=== PATIENT | male | born 1955 | race Caucasian/White ===

== ENCOUNTER 2019-02-27 17:20 | Inpatient (IN) | payer MEDICARE, BC ==
[~2019-02-27] VITALS: Ht 177.8 cm; Wt 162.4 kg
[~2019-02-27 17:20] MED LIST: Dyazide 37.5-21 EACH PO; ESCI10 PO; LISI20; Micro-K10 MEQ PO; Ventolin/Prove6.7 GM INH
[2019-02-27 17:55] LABS: BASOPHILS ABSOLUTE AUTO 0.04 K/mm3 (0.00-0.23); BASOPHILS PERCENT AUTO 0 % (0-2); EOSINOPHILS ABSOLUTE AUTO 0.53 K/mm3 (0.00-0.68); EOSINOPHILS PERCENT AUTO 6 % (0-6); Hematocrit 52.5 % (37.0-53.0); Hemoglobin 16.4 g/dL (13.5-17.5); IMMATURE GRAN ABSOLUTE AUTO 0.05 K/mm3 (0.00-0.10); IMMATURE GRAN PERCENT AUTO 1 % (0-1); LYMPHOCYTES ABSOLUTE AUTO 1.62 K/mm3 (0.84-5.20); LYMPHOCYTES PERCENT AUTO 17 % (21-46); MONOCYTES ABSOLUTE AUTO 0.83 K/mm3 (0.16-1.47); MONOCYTES PERCENT AUTO 9 % (4-13); Mean Corpuscular HGB 29.1 pg (26.0-34.0); Mean Corpuscular HGB Conc 31.2 g/dL (31.5-36.5); Mean Corpuscular Volume 93 fL (80-100); Mean Platelet Volume 10.2 fL (9.1-12.4); NEUTROPHILS ABSOLUTE AUTO 6.45 K/mm3 (1.96-9.15); NEUTROPHILS PERCENT AUTO 68 % (41-73); Platelet Count 233 K/mm3 (150-400); RDW Coefficient Variation 15.9 % (11.7-14.2); RDW Standard Deviation 54.4 fL (35.1-46.3); Red Blood Cell Count 5.64 M/mm3 (4.30-5.90); White Blood Cell Count 9.52 K/mm3 (4.00-11.30)
[2019-02-27] MEDS ORDERED: ESCITALOPRAM OX10 MG PO (18:14)
[2019-02-27] MEDS ORDERED: Bumetanide2 MG PO (18:14)
[2019-02-27 18:21] LABS: Alanine Aminotransfer (ALT/SGP 34 U/L (12-78); Albumin, Blood 3.5 g/dL (3.4-5.0); Albumin/Globulin Ratio 0.8 (0.8-1.8); Alk Phos 124 U/L (50-136); Anion Gap 3 mmol/L (6-16); Aspartate Aminotrans (AST/SGOT 34 U/L (12-37); Bilirubin, Total 0.5 mg/dL (0.1-1.0); Blood Urea Nitrogen 15 mg/dL (8-24); Bun/Creatinine Ratio 24.7 (12.0-20.0); CO2, Blood 36 mmol/L (21-32); Calcium, Blood 8.9 mg/dL (8.5-10.1); Chloride, Blood 97 mmol/L (98-108); Creatinine, Blood 0.61 mg/dL (0.60-1.20); Globulin, Blood 4.6 g/dL (2.2-4.0); Glomerular Filtration Rate >60 (60-); Glucose, Blood 121 mg/dL (70-99); Potassium, Blood 4.5 mmol/L (3.5-5.5); Sodium, Blood 136 mmol/L (136-145); Total Protein, Blood 8.1 g/dL (6.4-8.2); Troponin I <0.015 ng/mL (0.000-0.040)
[2019-02-27 20:03] LABS: Influenza A Negative (NEGATIVE); Influenza B Negative (NEGATIVE)
[2019-02-27] MEDS ORDERED: JARDIANCE25 MG PO (21:51)
[2019-02-27] MEDS ORDERED: METF500 PO (21:52)
--- NOTE | 2019-02-28 05:36 | NUR ---
SHIFT SUMMARY PT NEW ER ADMIT THIS EVENING. PT ALERT AND ORIENTED. PLEASANT AND MOSTLY COOPERATIVE. PT REPORTED THAT HE CANNOT SLEEP LYING DOWN SO A RECLINER WAS SET UP AND PT REMAINED IN THAT THROUGHOUT THE NIGHT. PT SLEPT WELL IN THE RECLINER FOR MOST OF THE NIGHT. DIAPHORETIC THIS AM WHICH PT STATES IN NORMAL FOR HIM. PT ON 4 L OF O2 WITH HIS BASELINE BEING ROOM AIR. PT'S O2 SATS REMAINED IN THE LOW 90'S ON THE 4 L. LUNG SOUNDS VERY WHEEZY THROUGHOUT. HARSH NON PRODUCTIVE COUGH NOTED. HEADACHE REPORTED THIS AM. TYLENOL PROVIDED. PT SLEEPING AGAIN WHEN REEVALUATED. VITAL SIGNS STABLE. NO ACUTE CHANGES THIS SHIFT. WILL CONTINUE TO MONITOR.
--- NOTE | 2019-02-28 17:26 | NUR ---
SHIFT SUMMARY- PT A/O, COOPERATIVE AND PLESANT. PT INDEPENDANT IN THE ROOM. PT RECIEVED TWO BREATHING TREATMENTS FROM RT. PT COUGHING FREQUENTLY THROUGHOUT THE SHIFT. PT HAD VISITORS AT THE BEDSIDE FOR MUCH OF THIS SHIFT.
[2019-03-01 04:38] LABS: BASOPHILS ABSOLUTE AUTO 0.02 K/mm3 (0.00-0.23); BASOPHILS PERCENT AUTO 0 % (0-2); EOSINOPHILS ABSOLUTE AUTO 0.01 K/mm3 (0.00-0.68); EOSINOPHILS PERCENT AUTO 0 % (0-6); Hematocrit 51.8 % (37.0-53.0); IMMATURE GRAN ABSOLUTE AUTO 0.11 K/mm3 (0.00-0.10); IMMATURE GRAN PERCENT AUTO 1 % (0-1); LYMPHOCYTES ABSOLUTE AUTO 0.65 K/mm3 (0.84-5.20); LYMPHOCYTES PERCENT AUTO 3 % (21-46); MONOCYTES ABSOLUTE AUTO 0.45 K/mm3 (0.16-1.47); MONOCYTES PERCENT AUTO 2 % (4-13); Mean Corpuscular HGB 28.8 pg (26.0-34.0); Mean Corpuscular HGB Conc 30.9 g/dL (31.5-36.5); Mean Corpuscular Volume 93 fL (80-100); Mean Platelet Volume 10.3 fL (9.1-12.4); NEUTROPHILS ABSOLUTE AUTO 19.68 K/mm3 (1.96-9.15); NEUTROPHILS PERCENT AUTO 94 % (41-73); Platelet Count 207 K/mm3 (150-400); RDW Standard Deviation 55.5 fL (35.1-46.3); Red Blood Cell Count 5.56 M/mm3 (4.30-5.90); White Blood Cell Count 20.92 K/mm3 (4.00-11.30)
--- NOTE | 2019-03-01 04:53 | NUR ---
SHIFT SUMMARY PT REPORTS TO FEELING "BETTER" INTERMITTENTLY. LUNG SOUNDS REMAIN COARSE AND WHEEZY, SLIGHTLY IMPROVED FROM PREVIOUS NIGHT. PT CONTINUED TO HAVE HARSH, PAINFUL, NON PRODUCTIVE COUGH. NEW ORDER THIS EVENING FOR GUAFENESIN/CODEINE COUGH SYRUP 5 ML Q 6 HRS NEEDED. MEDICATED WITH THIS X 1 THIS EVENING, PT SLEPT WELL AFTER WITH MINIMAL COUGHING. PT DIAPHORETIC AGAIN THIS AM. BOTH PT AND CONFIRMED THAT THIS IS BASELINE FOR PT. BLOOD PRESSURE DIASTOLIC ON THE LOW END THIS EVENING BUT IMPROVED THIS AM. VITAL SIGNS STABLE THROUGHOUT THE NIGHT. PT REPORTED THAT HE CANNOT SLEEP IN THE BED THEREFORE REMAINED IN A RECLINER THIS EVENING. REMAINED AT BEDSIDE. WILL CONTINUE TO MONITOR.
[2019-03-01 05:01] LABS: Anion Gap 5 mmol/L (6-16); Blood Urea Nitrogen 38 mg/dL (8-24); CO2, Blood 35 mmol/L (21-32); Chloride, Blood 94 mmol/L (98-108); Creatinine, Blood 0.79 mg/dL (0.60-1.20); Glomerular Filtration Rate >60 (60-); Glucose, Blood 354 mg/dL (70-99); Potassium, Blood 4.3 mmol/L (3.5-5.5); Sodium, Blood 134 mmol/L (136-145)
--- NOTE | 2019-03-01 17:08 | NUR ---
PT BG WAS 401, SPOKE WITH DR. HENSON, HE DECREASED THE DOSAGE OF THE SOLU-MEDROL FROM 60MG Q6 TO 40MG Q6.
--- NOTE | 2019-03-01 17:10 | NUR ---
PT A/O, COOPERATIVE AND PLESANT. PT CONTINUES INTERMITENT COUGHING THROUGHOUT THIS SHIFT. PT TITRATED TO 3L O2, BUT SATS DROPPED TO 89% SO INCREASED O2 BACK UP TO 4L. PT INDEPENDANT IN ROOM, PT TOOK A SHOWER THIS AFTERNOON. PT BG LEVELS INCREASED THIS SHIFT AND DR. HENSON ORDERED INSULIN. PT BG LEVEL WAS [address] CARPENTER NOTIFIED CHANGED DOSE OF SOLUMEDROL
--- NOTE | 2019-03-02 05:43 | NUR ---
SHIFT SUMMARY NO ACUTE CHANGES THIS SHIFT. LUNG SOUNDS UNCHANGED. COARSE THROUGHOUT WITH SOME WHEEZING. PT HAS HARSH NONPRODUCTIVE COUGH. PT DOES REPORT SLIGHT IMPROVEMENT IN BREATHING AND HOW HE FEELS. BREATHING TX'S PER RT. MEDICATED X 1 WITH 5 ML GUAFENESIN/CODEINE COUGH SYRUP. PT SLEPT IN RECLINER. AT BEDSIDE THROUGHOUT THE NIGHT. VITAL SIGNS STABLE. WILL CONTINUE TO MONITOR.
--- NOTE | 2019-03-02 09:51 | NUR ---
Echocardiogram completed.
--- NOTE | 2019-03-02 14:56 | NUR ---
ALERT. ORIENTED. HARSH SOUNDING COUGH. PLEASANT. COOPERATIVE. ON OXYGEN NOW W/BASELINE NO OXYGEN. IV PATENT. AWARE BLOOD SUGARS MAY BE HIGH DUE TO IV STEROIDS. INDEPENDENT IN ROOM. STEADY GAIT. OXYGEN TUBING W/EXTENTION SO HE IS ABLE TO USE BATHROOM. PULMONARY CONSULT CALLED. GISELLE.
[2019-03-03 04:42] LABS: BASOPHILS ABSOLUTE AUTO 0.02 K/mm3 (0.00-0.23); BASOPHILS PERCENT AUTO 0 % (0-2); EOSINOPHILS ABSOLUTE AUTO 0.02 K/mm3 (0.00-0.68); EOSINOPHILS PERCENT AUTO 0 % (0-6); Hematocrit 51.4 % (37.0-53.0); Hemoglobin 15.9 g/dL (13.5-17.5); IMMATURE GRAN ABSOLUTE AUTO 0.09 K/mm3 (0.00-0.10); IMMATURE GRAN PERCENT AUTO 1 % (0-1); LYMPHOCYTES ABSOLUTE AUTO 0.75 K/mm3 (0.84-5.20); LYMPHOCYTES PERCENT AUTO 5 % (21-46); MONOCYTES PERCENT AUTO 5 % (4-13); Mean Corpuscular HGB 28.4 pg (26.0-34.0); Mean Corpuscular HGB Conc 30.9 g/dL (31.5-36.5); Mean Corpuscular Volume 92 fL (80-100); Mean Platelet Volume 10.5 fL (9.1-12.4); NEUTROPHILS ABSOLUTE AUTO 14.07 K/mm3 (1.96-9.15); NEUTROPHILS PERCENT AUTO 90 % (41-73); Platelet Count 230 K/mm3 (150-400); RDW Coefficient Variation 16.1 % (11.7-14.2); RDW Standard Deviation 54.7 fL (35.1-46.3); White Blood Cell Count 15.65 K/mm3 (4.00-11.30)
[2019-03-03 05:02] LABS: Anion Gap 6 mmol/L (6-16); Blood Urea Nitrogen 28 mg/dL (8-24); Bun/Creatinine Ratio 43.5 (12.0-20.0); CO2, Blood 35 mmol/L (21-32); Calcium, Blood 8.7 mg/dL (8.5-10.1); Chloride, Blood 91 mmol/L (98-108); Creatinine, Blood 0.64 mg/dL (0.60-1.20); Glomerular Filtration Rate >60 (60-); Glucose, Blood 275 mg/dL (70-99); Potassium, Blood 4.3 mmol/L (3.5-5.5); Sodium, Blood 132 mmol/L (136-145)
--- NOTE | 2019-03-03 05:15 | NUR ---
SHIFT SUMMARY PATIENT STAYED UP IN RECLINER CHAIR AND WAS AWAKE MOST OF THE NIGHT. IV REMAINS PATENT, WAS FLUSHED AND DRESSING CHANGED. PATIENT EXPECTED TO HAVE A REPEAK CHEST X-RAY AND HOME O2 EVAL. BED IN LOWEST POSITION WITH WHEELS LOCKED. CALL LIGHT AND BEDSIDE TABLE WITHIN REACH. REPORT GIVEN TO ONCOMING RN.
[2019-03-03] MEDS ORDERED: AIRDUO RESPICL1 EAC2 INH (11:16)
[2019-03-03] MEDS ORDERED: GUAI600T33 PO (11:17)
[2019-03-03] MEDS ORDERED: ALBU3IS INH (11:23)
[2019-03-03] MEDS ORDERED: LISI20 PO (11:24)
[2019-03-03] MEDS ORDERED: PRED20 PO (11:24)
--- NOTE | 2019-03-03 15:11 | NUR ---
PT AOX4 AND COOPERATIVE OF CARE. PT STILL WHEEZING THROUGHOUT AND NEEDS 4 L OF O2. PT DISCHARGED AT 1500 WITH TO TRANSPORT. PT'S HOME O2 WAS DELIVERED PRIOR TO DISCHARGE. PT HAD ALL PAPERS REVEIWED AND EDUCATIONAL MATERIAL SENT WITH HIM. NO DISTRESS NOTED. PT ESCORTED VIA WHEELCHAIR BY AID. MEDICTIONS FAXED TO [facility]. APPOINTMENT SCHEDULED WITH PULMONARY FOR 03/09/19 @ 0530. THEY WILL CALL PT IF AND EARLIER APPOINTMENT CAN BE ARRANGED.
== END 2019-03-03 15:00 | disposition home or self-care (01) | DRG 189 ==
LOC: ER 17:20 → MEDS 17:21 → ENPENDDIS 03-03 08:53 → MEDS 03-03 15:00
PROVIDERS: Emergency Medicine; Internal Medicine; Physician Assistant; ADMIT Internal Medicine
DX: J96.01 Acute respiratory failure with hypoxia (principal); J44.1 Chronic obstructive pulmonary disease with (acute) exacerbation; E66.2 Morbid (severe) obesity with alveolar hypoventilation; J44.0 Chronic obstructive pulmonary disease with (acute) lower respiratory infection; Z68.43 Body mass index [BMI] 50.0-59.9, adult; E87.1 Hypo-osmolality and hyponatremia; J20.8 Acute bronchitis due to other specified organisms; E11.9 Type 2 diabetes mellitus without complications; I27.81 Cor pulmonale (chronic); I10 Essential (primary) hypertension; J42 Unspecified chronic bronchitis; Z87.891 Personal history of nicotine dependence; Z79.84 Long term (current) use of oral hypoglycemic drugs; Z79.899 Other long term (current) drug therapy
CPT/HCPCS: 36415; 71046; 80048; 80053; 82947; 83880; 84145; 84484; 85025; 87804; 93005; 93010; 94640; 94644; 94667; 94760; 94761; 96365; 96375; 99285-25; A9270; C8929; J0456; J2920; J2930; J7050; Q9957

== ENCOUNTER 2021-04-26 20:35 | Inpatient (IN) | payer MEDICARE, BC ==
[~2021-04-26] VITALS: Ht 177.8 cm; Wt 158.8 kg
[~2021-04-26 20:35] MED LIST changes: +AIRDUO RESPICL1 EAC2 INH; +ALBU3IS INH; +Bumetanide2 MG PO; -ESCI10 PO; +ESCI20 PO; +ESCITALOPRAM OX10 MG PO; +GUAI600T33 PO; +JARDIANCE25 MG PO; +LISI20 PO; +METF500 PO; +PRED20 PO
[2021-04-26 21:40] LABS: Hematocrit 51.1 % (37.0-53.0); Hemoglobin 15.7 g/dL (13.5-17.5); Mean Corpuscular HGB 27.2 pg (26.0-34.0); Mean Corpuscular HGB Conc 30.7 g/dL (31.5-36.5); Mean Corpuscular Volume 88 fL (80-100); Platelet Count 245 K/mm3 (150-400); RDW Coefficient Variation 16.1 % (11.7-14.2); RDW Standard Deviation 51.8 fL (35.1-46.3); Red Blood Cell Count 5.78 M/mm3 (4.30-5.90); White Blood Cell Count 22.86 K/mm3 (4.00-11.30)
[2021-04-26 21:58] LABS: BAND PERCENT MAN 10 % (0-8); BASOPHILS PERCENT MAN 0 % (0-2); EOSINOPHILS PERCENT MAN 0 % (0-6); LYMPHOCYTES ABSOLUTE MAN 0.68 K/mm3 (0.84-5.20); LYMPHOCYTES PERCENT MAN 3 % (21-46); MONOCYTES ABSOLUTE MAN 0.68 K/mm3 (0.16-1.47); MONOCYTES PERCENT MAN 3 % (4-13); NEUTROPHILS ABSOLUTE MAN 21.48 K/mm3 (1.96-9.15); SEG NEUTROPHILS PERCENT MAN 84 % (41-73); TOTAL CELLS COUNTED 100
[2021-04-26 22:42] LABS: Influenza A, PCR NEGATIVE (NEGATIVE); Influenza B, PCR NEGATIVE (NEGATIVE); Resp Syncytial Virus, PCR NEGATIVE (NEGATIVE); SARS-Cov-2 (COVID-19) PCR, MMC NEGATIVE (NEGATIVE)
[2021-04-26 22:43] LABS: Alanine Aminotransfer (ALT/SGP 22 U/L (12-78); Albumin, Blood 3.5 g/dL (3.4-5.0); Albumin/Globulin Ratio 0.9 (0.8-1.8); Alk Phos 121 U/L (50-136); Anion Gap 7 mmol/L (6-16); Aspartate Aminotrans (AST/SGOT 15 U/L (12-37); Bilirubin, Total 0.4 mg/dL (0.1-1.0); Blood Urea Nitrogen 47 mg/dL (8-24); Bun/Creatinine Ratio 34.8 (12.0-20.0); CO2, Blood 30 mmol/L (21-32); Calcium, Blood 9.2 mg/dL (8.5-10.1); Chloride, Blood 98 mmol/L (98-108); Creatinine, Blood 1.35 mg/dL (0.60-1.20); Glomerular Filtration Rate 53 (60-); Glucose, Blood 183 mg/dL (70-99); Potassium, Blood 5.3 mmol/L (3.5-5.5); Sodium, Blood 135 mmol/L (136-145); Total Protein, Blood 7.5 g/dL (6.4-8.2); Troponin I <0.015 ng/mL (0.000-0.040)
[2021-04-27 00:47] LABS: Source, Urine Voided
[2021-04-27 00:50] LABS: Bilirubin, Urine Neg (Neg); Blood, Urine Neg (Neg); Glucose Qualitative, Urine 4+ (Neg); Ketones, Urine Neg (Neg); Leukocyte Esterase, Urine Neg (Neg); Nitrite, Urine Neg (Neg); Protein, Urine 2+ (Neg); Urobilinogen, Urine NORM (Normal)
[2021-04-27 00:55] LABS: Appearance, Urine Hazy (Clear); Color, Urine Yellow (P-Yellow)
[2021-04-27 00:56] LABS: Amorphous Light (0-Heavy); Bacteria Rare /hpf; Hyaline Casts 25-50 /lpf (0-2); Other Crystals Few /hpf; Red Blood Cells, Urine Not Seen /hpf (0-2); Squamous Epithelial Cells Few /hpf (Few); White Blood Cells, Urine 0-2 /hpf (0-5)
[2021-04-27 04:31] LABS: Hematocrit 44.3 % (37.0-53.0); Hemoglobin 13.5 g/dL (13.5-17.5); Mean Corpuscular HGB 27.4 pg (26.0-34.0); Mean Corpuscular HGB Conc 30.5 g/dL (31.5-36.5); Mean Corpuscular Volume 90 fL (80-100); Mean Platelet Volume 10.3 fL (9.1-12.4); Platelet Count 242 K/mm3 (150-400); RDW Coefficient Variation 16.1 % (11.7-14.2); RDW Standard Deviation 53.9 fL (35.1-46.3); Red Blood Cell Count 4.93 M/mm3 (4.30-5.90); White Blood Cell Count 38.74 K/mm3 (4.00-11.30)
[2021-04-27 05:41] LABS: BAND PERCENT MAN 22 % (0-8); BASOPHILS PERCENT MAN 0 % (0-2); EOSINOPHILS PERCENT MAN 0 % (0-6); LYMPHOCYTES ABSOLUTE MAN 0.38 K/mm3 (0.84-5.20); LYMPHOCYTES PERCENT MAN 1 % (21-46); MONOCYTES ABSOLUTE MAN 2.71 K/mm3 (0.16-1.47); MONOCYTES PERCENT MAN 7 % (4-13); MYELOCYTE ABSOLUTE MAN 0.38 K/mm3 (0.00-0.00); MYELOCYTE PERCENT MAN 1 % (0-0); NEUTROPHILS ABSOLUTE MAN 35.25 K/mm3 (1.96-9.15); SEG NEUTROPHILS PERCENT MAN 69 % (41-73); TOTAL CELLS COUNTED 100
[2021-04-27 06:01] LABS: Albumin, Blood 2.9 g/dL (3.4-5.0); Albumin/Globulin Ratio 0.9 (0.8-1.8); Bilirubin, Total 0.6 mg/dL (0.1-1.0); Bun/Creatinine Ratio 28.3 (12.0-20.0); Calcium, Blood 8.1 mg/dL (8.5-10.1); Creatinine, Blood 1.8 mg/dL (0.60-1.20); Globulin, Blood 3.2 g/dL (2.2-4.0); Potassium, Blood 4.9 mmol/L (3.5-5.5); Total Protein, Blood 6.1 g/dL (6.4-8.2)
--- NOTE | 2021-04-27 07:13 | NUR ---
END OF SHIFT SUMMARY: TOA to ICU 0400 Neuro: AOx4, pleasant and cooperative. Able to move all extremities spontenously and equally. Pt has baseline generalized pain on his back, hip and shoulder. Pt is very sensitive to touch and yells ouch with slight touches to any body part. Resp: Pt tolerating nasal cannula but O2 had to be bumped to 6L. Diminished to clear bilaterally. No cough. Cardiac: Hypotensive - on levophed to keep MAP goal >65. Pulses are very weak radially, doppler used on pedal pulses. Generalized edema, non pitting. Febrile in ED but temperature have been ok in ICU - Tmax 99 F. GI/: No BM overnight, has not voided since admit to ICU. Abdomen is distended, rounded and hypoative. Significant Events: MD was able to insert a right CVC 4x lumen IJ rn relief charge was also able to put in a power glide on left upper arm BP still low - levophed titrated up to maintain map goal >65 Right hand IV infiltrated, treated with Regitine due to levophed running at high rate.
--- NOTE | 2021-04-27 07:31 | NUR ---
ASSUMED CARE PT. RESTING COMFORTABLY IN BED, REPORTS BEING TIRED AND WANTING TO SLEEP AT THIS TIME. LS CLEAR, ON 4LNC, CENTRAL LINE TO RIJ WITH LEVOPHED INFUSING, TITRATED DOWN TO 10MCG/MIN AT THIS TIME. SWELLING NOTED TO BLE, MORE REDNESS AND SWELLING TO THE RIGHT LEG AND TENDER TO TOUCH. PT REPORTS UNCHANGED SINCE ARRIVAL TO ICU. CALL LIGHT IN REACH.
--- NOTE | 2021-04-27 09:00 | NUR ---
PER DR. HEADLEY COLES TEMP PLACED FOR RETENTION AND STRICT I&O. URINE SAMPLE SENT WITH PLACEMENT
--- NOTE | 2021-04-27 11:55 | NUR ---
UPDATE PT. SITTING UP IN BED EATING LUNCH. POSITIVE BLOOD CULTURE REPORT CALLED TO DR. HEADLEY. PT. REMAINS ON LEVOPHED GTT CURRENTLY AT 6MCG/MIN.
--- NOTE | 2021-04-27 16:33 | NUR ---
Pt. was alert and sitting up in bed. Spouse and granddaughter were present. Established rapport with the family. Presented [employer] information with pt. and spouse. Family will consult material and other family members over the weekend. Explored sources of connectedness and support. Granddaughter left room in an emotional state (recently lost mother in a hosptial) Pt. had a bout of coughing, sought assistance from ICU nurse. Reinforced helpful attitudes and practices. Patient displayed eveidence of trust and comprehension of the care required for his medical recovery. Pt. verbalized gratitude and increased resolve to get healthy. Pastoral prayer was given. Will monitor pt. progress,
--- NOTE | 2021-04-27 17:43 | NUR ---
SHIFT SUMMARY PT. SITTING UP IN BED TALKING WITH . ABLE TO SHIFT SELF AROUND IN BED BUT DOES NEED SOME ASSISTANCE DUE TO PAIN IN BILAT LE AND CHRONIC BACK PAIN. PT. CONTINUES ON LEVOPHED GTT CURRENTLY AT 4MCG/MIN. TYLENOL GIVEN TWICE THIS SHIFT, CONITNUES WITH LOW GRADE TEMP. COLES TEMP PROBE PLACED THIS SHIFT WITH GOOD URINE OUT PUT. PT HAS GOOD ORAL INTAKE OF H20 T/O SHIFT. NADN. CALL LIGHT IN REACH. REPORT TO ONCOMING RN.
--- NOTE | 2021-04-27 18:33 | NUR ---
AFIB NOTED ON MONITOR, EKG DONE. RATE IN LOW 100S, DR. HEADLEY NOTIFIED. PT DENIES ANY CHEST PAIN OR PRESSURE.
--- NOTE | 2021-04-27 20:00 | NUR ---
ASSUMED CARE OF PT AT 1915. REPORT RECEIVED AT BEDSIDE. PT PRESENTS IN BED ALERT AND ORIENTED, PLEASANT AND COOPERATIVE WITH CARE AND ASSESSMENT. NOTED PT'S TEMPERATURE 101.6 HAD BEEN MEDICATED WITH APAP AT NEAR 1500. WILL CONTINUE TO MONITOR IF HE HAS DECREASE IN TEMP PER TYLENOL DOSE. PT HAS MOIST NON PRODUCTIVE COUGH. WILL OBTAIN SAMPLE IF ABLE FOR LAB. WILL REVIEW CHART AND PLAN OF CARE FOR THIS PT.
--- NOTE | 2021-04-27 23:42 | NUR ---
HAVE CALLED DR ZAPATA CONCERNING TEMP CONTINUES TO BE 102.0 AFTER TYLENOL. RECEIVED ORDER FOR 400 MG IBUPROFEN WHICH HAS BEEN GIVEN. PT'S TEMPERATURE HAS DECREASED TO 100.8. HAVE BEEN ABLE TO STOP LEVOPHED EARILIER IN THE SHIFT. BLOOD PRESSURES REMAIN STABLE. HAVE HAD SOME READINGS WITH SBP < 80. THESE READINGS SECONDARY TO ARM BEING ELEVATED ABOVE HIS HEART. WHEN ARM REPOSITIONED, ACCURATE BLOOD PRESSURES ACHIEVED.
[2021-04-28 04:26] LABS: BASOPHILS ABSOLUTE AUTO 0.08 K/mm3 (0.00-0.23); BASOPHILS PERCENT AUTO 0 % (0-2); EOSINOPHILS ABSOLUTE AUTO 0.03 K/mm3 (0.00-0.68); EOSINOPHILS PERCENT AUTO 0 % (0-6); Hematocrit 47.6 % (37.0-53.0); Hemoglobin 14.2 g/dL (13.5-17.5); IMMATURE GRAN ABSOLUTE AUTO 0.21 K/mm3 (0.00-0.10); IMMATURE GRAN PERCENT AUTO 1 % (0-1); LYMPHOCYTES ABSOLUTE AUTO 0.48 K/mm3 (0.84-5.20); LYMPHOCYTES PERCENT AUTO 2 % (21-46); MONOCYTES ABSOLUTE AUTO 1.08 K/mm3 (0.16-1.47); MONOCYTES PERCENT AUTO 5 % (4-13); Mean Corpuscular HGB 27.1 pg (26.0-34.0); Mean Corpuscular HGB Conc 29.8 g/dL (31.5-36.5); Mean Corpuscular Volume 91 fL (80-100); Mean Platelet Volume 9.9 fL (9.1-12.4); NEUTROPHILS ABSOLUTE AUTO 20.11 K/mm3 (1.96-9.15); NEUTROPHILS PERCENT AUTO 91 % (41-73); Platelet Count 193 K/mm3 (150-400); RDW Coefficient Variation 16.2 % (11.7-14.2); RDW Standard Deviation 54.4 fL (35.1-46.3); Red Blood Cell Count 5.24 M/mm3 (4.30-5.90); White Blood Cell Count 21.99 K/mm3 (4.00-11.30)
--- NOTE | 2021-04-28 05:36 | NUR ---
PT WEARS HIS CPAP THIS NIGHT WITH 6 L/M O2 BLEED IN. NOTED PT CONTINUES WITH SLEEP APNEIC TYPE RESPIRATIONS EVEN WHILE WEARING HIS HOME CPAP. PT HAS TEMP NADAR OF 98.6 AFTER IBUPROFEN. NOTING THAT TEMP INCREASING TO 100.4. IF THIS CONTINUES WILL ADMINISTER DOSE OF TYLENOL. PT HAS ALSO CONVERTED FROM ATRIAL FIB, TO SINUS RHYTHM THIS NIGHT. WILL CONTINUE TO MONITOR PT, AND WILL REPORT OFF TO ONCOMING RN.
[2021-04-28 05:41] LABS: Alanine Aminotransfer (ALT/SGP 27 U/L (12-78); Albumin, Blood 2.6 g/dL (3.4-5.0); Albumin/Globulin Ratio 0.7 (0.8-1.8); Alk Phos 95 U/L (50-136); Anion Gap 7 mmol/L (6-16); Aspartate Aminotrans (AST/SGOT 26 U/L (12-37); Bilirubin, Total 0.7 mg/dL (0.1-1.0); Blood Urea Nitrogen 26 mg/dL (8-24); Bun/Creatinine Ratio 27.7 (12.0-20.0); CO2, Blood 30 mmol/L (21-32); Calcium, Blood 8.8 mg/dL (8.5-10.1); Chloride, Blood 102 mmol/L (98-108); Creatinine, Blood 0.94 mg/dL (0.60-1.20); Globulin, Blood 3.7 g/dL (2.2-4.0); Glomerular Filtration Rate >60 (60-); Glucose, Blood 97 mg/dL (70-99); Potassium, Blood 4.5 mmol/L (3.5-5.5); Sodium, Blood 139 mmol/L (136-145); Total Protein, Blood 6.3 g/dL (6.4-8.2)
--- NOTE | 2021-04-28 09:07 | NUR ---
AM NOTE... ASSUMED CARE OF PT AT 0700, THE PT IS A&Ox4. LEVOPHED HAS BEEN OFF SINCE APROX 193 PER NOC SHIFT RN REPORT. THE PT'S BP AND HR ARE STABLE AT THIS TIME, PT IS IN SR IN THE 80'S. THE PT HAS 2+ EDEMA NOTED TO HIS BLE. THE PT IS ON 5L NC WITH O2 SATS >90%, L/S CLEAR T/O DIM IN THE BASES. BT PRESENT AND HYPOACTIVE, ABD IS SOFT AND NONTENDER TO PALP. THE PT IS C/O OF A 9/10 HEADACH, HE STATES THIS HAPPENS AT HOME "WHEN I DON'T GET ENOUGH OXYGEN WHEN I SLEEP." PER REPORT THE NOC SHIFT RN HAD TO PLACE A 6L BLEED IN TO THE CPAP TO KEEP THE PT'S O2 SATS >90%. PT USES THIS CPAP AT HOME PER THE PT. THE PT DENIES ANY OTHER PAIN AT THIS TIME. THE PT'S TMAX AT THIS TIME IS 100.4 CALL LIGHT INREACH WILL CONTINUE TO MONITOR.
--- NOTE | 2021-04-28 17:46 | NUR ---
SHIFT SUMMARY.... NO ACUTE NEGATIVE CHANGES NOTED THIS SHIFT. THE PT CONTINUES TO HAVE STABLE BPs WITH MAPS >65. THE PT HAS BEEN FEBRILE WITH A TMAX OF 100.9, HE WAS MEDICATED PER EMAR WITH MINIMAL RESULTS THIS AFTERNOON. THE PT HAS ALSO BEEN C/O OF 9/10 HEADACHES, THESE WERE ALSO MEDICATED PER EMAR WITH MODERATE RESULTS. THE PT WAS TAKEN TO CT SCAN TO R/O ABCESS IN THE RLE, THE CT WAS NEGATIVE FOR AN ABCESS BUT SHOWED CELLULITIS. THE PT'S RLE IS VERY PAINFUL TO ANY SLIGHT TOUCH, WARM AND OK[place] RED. THE RED AREAS WERE MARKED BY THIS RN PER THE PROVIDER'S REQUEST. THE PT GOT UP TO THE RECLINER CHAIR WITH SBA FOR DINNER. THE PT WAS ON 5L NC AT THE START OF THIS SHIFT TO KEEP HIS O2 SATS >90% THIS WAS TITRATED DOWN TO 2L NC WITH O2 SATS >90%. L/S CLEAR IN THE UPPER LOBES DIM WITH FINE CRACKLES NOTED IN THE BASES. THE PT DID NOT HAVE A BM THIS SHIFT. THE PT'S COLES IS PATENT AND DRAINING TO GRAVITY. THE PT'S AT THE BEDSIDE FOR VISITING HOURS, SHE WAS UPDATED ON THE PT'S CONDITION AND PLAN OF CARE. CALL LIGHT IN REACH WILL CONTINUE TO MONITOR UNTIL REPORT IS GIVEN TO ONCOMING RN.
--- NOTE | 2021-04-29 05:50 | NUR ---
END OF SHIFT SUMMARY: Pt AOx4, pleasant and cooperative. Complaints of headache and right lower extremity pain d/t what looks like cellulitis. Pt did receive tylenol for pain headache and slightly elevated temperature. Slept fairly good, but would prefer sitting on the recliner for more comfort.
--- NOTE | 2021-04-29 07:00 | NUR ---
ASSUME CARE: I have assumed care of pt. At this time pt is in bed and he appears to be sleeping.
--- NOTE | 2021-04-29 18:08 | NUR ---
END OF SHIFT SUMMARY: Pt up in chair for several hours today. He was participative with PT. Headache this morning was resolved with 600mg PRN advil. Pt complains of RLE pain that is worse with palpation, however that pain has been improving throughout the day. He is currently on 2L O2 via nasal cannula with spo2 at 94%. Pt voiding in urinal; he does report some stinging pain with urination, likely due to mann removal this morning. Fluid balance currently -1100. Pt's at bedside this afternoon. Will continue to monitor until report given to oncoming shift.
--- NOTE | 2021-04-29 19:04 | NUR ---
PROVIDER PAGE: Dr. Rosales paged regarding pt's hypotension. Awaiting call back
[2021-04-30 05:06] LABS: BASOPHILS ABSOLUTE AUTO 0.09 K/mm3 (0.00-0.23); BASOPHILS PERCENT AUTO 1 % (0-2); EOSINOPHILS ABSOLUTE AUTO 0.25 K/mm3 (0.00-0.68); EOSINOPHILS PERCENT AUTO 2 % (0-6); Hematocrit 45.3 % (37.0-53.0); Hemoglobin 13.8 g/dL (13.5-17.5); IMMATURE GRAN ABSOLUTE AUTO 0.19 K/mm3 (0.00-0.10); IMMATURE GRAN PERCENT AUTO 2 % (0-1); LYMPHOCYTES ABSOLUTE AUTO 0.96 K/mm3 (0.84-5.20); LYMPHOCYTES PERCENT AUTO 8 % (21-46); MONOCYTES ABSOLUTE AUTO 1.01 K/mm3 (0.16-1.47); MONOCYTES PERCENT AUTO 8 % (4-13); Mean Corpuscular HGB 27.3 pg (26.0-34.0); Mean Corpuscular HGB Conc 30.5 g/dL (31.5-36.5); Mean Corpuscular Volume 90 fL (80-100); Mean Platelet Volume 10.1 fL (9.1-12.4); NEUTROPHILS ABSOLUTE AUTO 9.89 K/mm3 (1.96-9.15); NEUTROPHILS PERCENT AUTO 80 % (41-73); Platelet Count 225 K/mm3 (150-400); RDW Coefficient Variation 16.3 % (11.7-14.2); RDW Standard Deviation 54.3 fL (35.1-46.3); Red Blood Cell Count 5.05 M/mm3 (4.30-5.90); White Blood Cell Count 12.39 K/mm3 (4.00-11.30)
[2021-04-30 05:38] LABS: Alanine Aminotransfer (ALT/SGP 43 U/L (12-78); Albumin, Blood 2.6 g/dL (3.4-5.0); Albumin/Globulin Ratio 0.5 (0.8-1.8); Alk Phos 139 U/L (50-136); Anion Gap 4 mmol/L (6-16); Aspartate Aminotrans (AST/SGOT 26 U/L (12-37); Bilirubin, Total 0.4 mg/dL (0.1-1.0); Blood Urea Nitrogen 19 mg/dL (8-24); Bun/Creatinine Ratio 29.5 (12.0-20.0); CO2, Blood 34 mmol/L (21-32); Calcium, Blood 9.4 mg/dL (8.5-10.1); Chloride, Blood 101 mmol/L (98-108); Creatinine, Blood 0.64 mg/dL (0.60-1.20); Glomerular Filtration Rate >60 (60-); Glucose, Blood 120 mg/dL (70-99); Potassium, Blood 4.2 mmol/L (3.5-5.5); Sodium, Blood 139 mmol/L (136-145); Total Protein, Blood 7.6 g/dL (6.4-8.2)
--- NOTE | 2021-04-30 06:07 | NUR ---
END OF SHIFT SUMMARY: Pt very pleasant and cooperative. Pt states his right leg cellulitis is feeling better and was able to ambulate in the room. No major event or significant changes overnight. Pt stated he had a good night sleep.
--- NOTE | 2021-04-30 17:46 | NUR ---
SHIFT SUMMARY PT A&0X4. C/O CONTINUED PAIN IN RIGHT LEG AND FOOT AND DULL HEADACHE. R LEG INCREASINGLY RED AND PAINFUL LATE MORNING COMPARED TO EARLY AM. DR. HENSON AWARE. REPEAT RLE ULTRASOUND PREFORMED - NEGATIVE, SEE REPORT. PT UP IN CHAIR TODAY. URINATES IN URINAL, GOOD UOP. 2LNC WITH SATS >90%.
--- NOTE | 2021-04-30 19:24 | NUR ---
CARE ASSUMPTION THIS RN RECIEVED BEDSIDE REPORT FROM DAYSHIFT RN, AT THIS TIME PT IS SLEEPING COMFORTABLY IN BED W CALL LIGHT WITHIN REACH.
--- NOTE | 2021-04-30 21:36 | NUR ---
UPDATE PT REPORTING PAIN AND SWELLING ON INSIDE OF L TRICEP. SITE IS SWOLLEN AND PAINFUL BUT NO REDNESS NOTED. POWERGLIDE SUPERIOR TO SITE CONFIRMED BLOOD RETURN. NOTIFIED AND TORADOL ORDERED PRN.
[2021-05-01 04:12] LABS: BASOPHILS PERCENT AUTO 1 % (0-2); EOSINOPHILS ABSOLUTE AUTO 0.26 K/mm3 (0.00-0.68); EOSINOPHILS PERCENT AUTO 2 % (0-6); Hematocrit 44.8 % (37.0-53.0); Hemoglobin 13.8 g/dL (13.5-17.5); IMMATURE GRAN ABSOLUTE AUTO 0.26 K/mm3 (0.00-0.10); IMMATURE GRAN PERCENT AUTO 2 % (0-1); LYMPHOCYTES ABSOLUTE AUTO 1.36 K/mm3 (0.84-5.20); LYMPHOCYTES PERCENT AUTO 12 % (21-46); MONOCYTES ABSOLUTE AUTO 1.19 K/mm3 (0.16-1.47); MONOCYTES PERCENT AUTO 10 % (4-13); Mean Corpuscular HGB 27.4 pg (26.0-34.0); Mean Corpuscular HGB Conc 30.8 g/dL (31.5-36.5); Mean Corpuscular Volume 89 fL (80-100); NEUTROPHILS PERCENT AUTO 73 % (41-73); Platelet Count 233 K/mm3 (150-400); RDW Coefficient Variation 16.6 % (11.7-14.2); RDW Standard Deviation 54.3 fL (35.1-46.3); Red Blood Cell Count 5.03 M/mm3 (4.30-5.90); White Blood Cell Count 11.87 K/mm3 (4.00-11.30)
[2021-05-01 04:32] LABS: Anion Gap 3 mmol/L (6-16); Blood Urea Nitrogen 21 mg/dL (8-24); Bun/Creatinine Ratio 25.5 (12.0-20.0); CO2, Blood 36 mmol/L (21-32); Calcium, Blood 9.4 mg/dL (8.5-10.1); Chloride, Blood 97 mmol/L (98-108); Creatinine, Blood 0.82 mg/dL (0.60-1.20); Glomerular Filtration Rate >60 (60-); Glucose, Blood 100 mg/dL (70-99); Sodium, Blood 136 mmol/L (136-145)
--- NOTE | 2021-05-01 05:01 | NUR ---
MECHANICAL DESIGN ENGINEER SUMMARY PT REMAINS AXO X4. O2 SATS >90% ON 2L NC THIS SHIFT BUT PT REFUSING TO WEAR HIS CPAP. BP MODERATELY ELEVATED FIRST HALF OF THE SHIFT ALTHOGH PT WAS IN PAIN DUE TO RLE AND L ARM, BP BETTER THIS AM AFTER RECIEVING TORADOL FOR PAIN. PT AFEBRILE THIS SHIFT. PT'S RLE IS DARK RED/PURPLE BUT HAS NOT EXCEEDED THE DRAWN BORDERS. PT CONTINUES TO HAVE GOOD URINE OUTPUT W OVER 2L OUT THIS SHIFT. WILL REPORT TO ONCOMING RN.
--- NOTE | 2021-05-01 17:20 | NUR ---
SHIFT SUMMARY PT HAS NEW SITE OF REDNESS ON RIGHT THIGH/GROIN AREA. PT COMPLAINS OF PAIN WITH PALPATION TO THIS AREA. DR. HENSON NOTIFIED, SEE ORDERS FOR NEW ABX. PT REMAINS AFEBRILE. HE WALKED AROUND THE UNIT THIS MORNING WITH PHYSICAL THERAPY. TOOK A SHOWER THIS AFTERNOON. HE WAS TRANSITIONED FROM 2LNC TO ROOM AIR AND HAS MAINTAINED SATS >90% ON ROOM AIR.
--- NOTE | 2021-05-01 21:02 | NUR ---
CARE ASSUMPTION PT LYING IN BED W C/O VICKY IN IN RLE, PT MEDICATED PER EMAR W LITTLE RELIEF. PT'S O2 SATS <90% W MOVEMENT ON RM AIR SO PLACED ON 3L NC AND O2 SATS >91%. BP MODERATELY ELEVATED W SBP IN THE 150'S. PT AFEBRILE. PT DENYING ANY CP OR PRESSURE, NO NAUSEA AT THIS TIME. PICS OF RLE TAKEN AND PLACED IN CHART.
--- NOTE | 2021-05-02 01:13 | NUR ---
UPDATE PT PLACED ON CPAP AFTER HAVING MULTIPLE APNEIC EPISODES CAUSING O2 SATS TO DROP <88%. PT IS MOSTLY NON-COMPLIANT W CPAP BUT WAS AGRREABLE TO USE IT HERE. CPAP ON HOME SETTINGS W 3L BLEED IN. O2 SATS >91%
[2021-05-02 03:47] LABS: BASOPHILS PERCENT AUTO 1 % (0-2); EOSINOPHILS ABSOLUTE AUTO 0.31 K/mm3 (0.00-0.68); EOSINOPHILS PERCENT AUTO 2 % (0-6); Hematocrit 42.9 % (37.0-53.0); Hemoglobin 13.2 g/dL (13.5-17.5); IMMATURE GRAN ABSOLUTE AUTO 0.46 K/mm3 (0.00-0.10); IMMATURE GRAN PERCENT AUTO 3 % (0-1); LYMPHOCYTES ABSOLUTE AUTO 1.76 K/mm3 (0.84-5.20); LYMPHOCYTES PERCENT AUTO 13 % (21-46); MONOCYTES ABSOLUTE AUTO 1.19 K/mm3 (0.16-1.47); MONOCYTES PERCENT AUTO 9 % (4-13); Mean Corpuscular HGB 27.7 pg (26.0-34.0); Mean Corpuscular HGB Conc 30.8 g/dL (31.5-36.5); Mean Corpuscular Volume 90 fL (80-100); NEUTROPHILS ABSOLUTE AUTO 9.52 K/mm3 (1.96-9.15); NEUTROPHILS PERCENT AUTO 72 % (41-73); Platelet Count 242 K/mm3 (150-400); RDW Coefficient Variation 16.6 % (11.7-14.2); RDW Standard Deviation 55.5 fL (35.1-46.3); Red Blood Cell Count 4.77 M/mm3 (4.30-5.90); White Blood Cell Count 13.34 K/mm3 (4.00-11.30)
[2021-05-02 04:16] LABS: Alanine Aminotransfer (ALT/SGP 56 U/L (12-78); Albumin, Blood 2.4 g/dL (3.4-5.0); Albumin/Globulin Ratio 0.5 (0.8-1.8); Alk Phos 144 U/L (50-136); Anion Gap 2 mmol/L (6-16); Aspartate Aminotrans (AST/SGOT 29 U/L (12-37); Bilirubin, Total 0.3 mg/dL (0.1-1.0); Blood Urea Nitrogen 22 mg/dL (8-24); CO2, Blood 35 mmol/L (21-32); Calcium, Blood 8.9 mg/dL (8.5-10.1); Chloride, Blood 102 mmol/L (98-108); Creatinine, Blood 0.79 mg/dL (0.60-1.20); Globulin, Blood 4.7 g/dL (2.2-4.0); Glomerular Filtration Rate >60 (60-); Glucose, Blood 104 mg/dL (70-99); Potassium, Blood 4.7 mmol/L (3.5-5.5); Sodium, Blood 139 mmol/L (136-145); Total Protein, Blood 7.1 g/dL (6.4-8.2)
--- NOTE | 2021-05-02 05:28 | NUR ---
WALLBOARD WORKER SUMRY PT IS AXO X4. PT CONTINUES TO HAVE PAIN IN RLE THAT LIMITS HIS MOBILITY. RASH STILL APPEARS TO BE RECEDING FROM ESTABLISHED BORDERS HOWEVER THE COLOR AND SWELLING HAS NOT IMPROVED. PT HAS HAD GOOD PO INTAKE THIS SHIFT WELL GOOD URINE OUTPUT. BP WNL AND STABLE. PT AFEBRILE THIS SHIFT. O2 SATS >90% ON 2L NC WHILE AWAKE HOWEVER PT PLACED ON HIS HOME CPAP THIS SHIFT AND CONTINUED TO DESAT ON THE CPAP REQUIRING 6L O2 BLEED-IN TO MAINTAIN >88% O2 SATS. PT REPORTING MILD DIZZINESS THIS AM WHEN HE WAS STANDING TO USE THE URINAL. PT REPORTING GENERALIZED SORENESS THIS AM. WILL REPORT TO ONCOMING RN.
--- NOTE | 2021-05-02 15:47 | NUR ---
PT IS A/OX3, PLEASANT AND COOPERATIVE. PT REPORTED FEELING BETTER THIS AM AND SAID SHE WANTED THE DOCTOR TO SEND HER HOME. THE PT ASKED DR. MORALES IF SHE COULD GO HOME TOMORROW TOLD THE PT THAT SHE WOULD LOOK INTO POSSIBLY DISCHARGING HER HOME. THE PT CALLED HER FAMILY AND INFORMED THEM THAT SHE WOULD BE COMING HOME TOMORROW. THE PTS SON CALLED BACK AND SPOKE WITH THIS RN SAYING THAT HER RETURN HOME TO THEM WOULD NOT BE POSSIBLE. [facility] [employer] CALLED TODAY AND MENTIONED THAT THEY WOULD BE COORDINATING DISCHARGE WITH THE VENDING MACHINE REFILLER [employer] FOR PLACEMENT . THIS RN UPDATED [employer] VENDING MACHINE REFILLER ON THE TELEPHONE EVENTS THAT TOOK PLACE TODAY REGARDING THE PT. THE PT HAS BEEN UP IN THE CHAIR TODAY AND THE BSC THE PT SO FAR THIS SHIFT HAS HAD NO PANIC ATTACK. THE PTS O2 HAS BEEN TITRATED TO 1L/MIN SO FAR AND COULD PROBABLY BE ON RA AT REST. THE PT WANTED TO SPEACK WITH THE DISEASE CASE MANAGER RN TODAY HE CAME AND SAT AND SPOKE WITH THE PT. CALL LIGHT IN REACH. WILL CONTINUE TO MONITOR AND ASSESS FOR CHANGES
--- NOTE | 2021-05-02 16:11 | NUR ---
PT IS A/OX3, PLEASANT AND COOPERATIVE. THE PT IS ON 2L/MIN O2 AT THIS TIME SAT'S GREATER THAN 90% EARLIER THE PT WAS ON RA SAT'S WERE IN THE MID 80'S. THE PT IS COMPLIANT WITH WEARING THE ORDERED ATI EMBOLIC SOCKS SO FAR. PT REPORTS THAT THE SWELLING IN HIS RIGHT LEG AND REDNESS HAS IMPROVED COMPARED TO YESTERDAY. PTS IS AT THE BEDSIDE. CALL LIGHT IN REACH. WILL CONTINUE TO MONITOR AND ASSESS FOR CHANGES
--- NOTE | 2021-05-03 04:56 | NUR ---
SHIFT SUMMARY KRYSTAL: KRYSTAL VITAL SIGNS WERE WNL ALL NIGHT. BOTH WHILE ON 2L NC AND THE CPAP SPO2 NEVER WENT OVER 94 EVERYTIME I CHECKED ON HIM. HE USES THE WALKER TO GO TO THE RESTROOM, IS PLEASANT, COOPERATIVE AND CONVERSATIONAL.RIGHT LEG EDMA AND CELLULITIS NOT RESOLVED IV ANTIBIOTICS TREATMENT IS ONGOING.
[2021-05-03 08:01] LABS: BASOPHILS ABSOLUTE AUTO 0.08 K/mm3 (0.00-0.23); BASOPHILS PERCENT AUTO 1 % (0-2); EOSINOPHILS ABSOLUTE AUTO 0.45 K/mm3 (0.00-0.68); EOSINOPHILS PERCENT AUTO 4 % (0-6); Hematocrit 44.3 % (37.0-53.0); Hemoglobin 13.1 g/dL (13.5-17.5); IMMATURE GRAN PERCENT AUTO 4 % (0-1); LYMPHOCYTES ABSOLUTE AUTO 1.88 K/mm3 (0.84-5.20); LYMPHOCYTES PERCENT AUTO 17 % (21-46); MONOCYTES ABSOLUTE AUTO 0.79 K/mm3 (0.16-1.47); MONOCYTES PERCENT AUTO 7 % (4-13); Mean Corpuscular HGB 26.9 pg (26.0-34.0); Mean Corpuscular HGB Conc 29.6 g/dL (31.5-36.5); Mean Corpuscular Volume 91 fL (80-100); NEUTROPHILS ABSOLUTE AUTO 7.57 K/mm3 (1.96-9.15); NEUTROPHILS PERCENT AUTO 67 % (41-73); Platelet Count 286 K/mm3 (150-400); RDW Coefficient Variation 16.6 % (11.7-14.2); RDW Standard Deviation 55.7 fL (35.1-46.3); Red Blood Cell Count 4.87 M/mm3 (4.30-5.90); White Blood Cell Count 11.27 K/mm3 (4.00-11.30)
--- NOTE | 2021-05-03 12:17 | NUR ---
Pt. was alert and sitting up. Welcomed my visit. Pt. demonstrated some concern about slow healing from infection. Re-established raapport and explored issues of family, and pain of some extended family dysfunction. Normalized pt. experience, and encouraged self-care. Pt. really opened up and engaged in life story. Pt. verbalized some closure. Prayed with pt. I will continue to monitor.
--- NOTE | 2021-05-03 17:28 | NUR ---
PATIENT IS ALERT AND ORIENTED AND COOPERATIVE WITH CARE. INDEPENDENT IN HIS ROOM WITH FWW. ON 2L O2 VIA NC. CONTINUOUS PULSE OXIMETRY IS IN PLACE. CPAP AT NIGHT. MERLINE WALTERS. PILO ARZATE ON. WORKED WITH PT THIS AFTERNOON. WILL CONTINUE TO MONITOR
[2021-05-04 06:00] LABS: Hematocrit 45.7 % (37.0-53.0); Hemoglobin 13.8 g/dL (13.5-17.5); Mean Corpuscular HGB 27.2 pg (26.0-34.0); Mean Corpuscular HGB Conc 30.2 g/dL (31.5-36.5); Mean Corpuscular Volume 90 fL (80-100); Platelet Count 340 K/mm3 (150-400); RDW Coefficient Variation 16.2 % (11.7-14.2); RDW Standard Deviation 53.9 fL (35.1-46.3); Red Blood Cell Count 5.08 M/mm3 (4.30-5.90); White Blood Cell Count 17.38 K/mm3 (4.00-11.30)
--- NOTE | 2021-05-04 06:14 | NUR ---
SHIFT SUMMARY PATIENT ALERT AND ORIENTED. MEDICATED PER EMAR FOR PAIN, GETS SLIGHTLY SHORT OF BREATH UPON EXERTION. NO ACUTE ISSUES NOTED OVERNIGHT. CALL LIGHT WITHIN REACH. REPORT GIVEN TO ONCOMING RN.
[2021-05-04 07:16] LABS: Alanine Aminotransfer (ALT/SGP 49 U/L (12-78); Albumin, Blood 2.8 g/dL (3.4-5.0); Albumin/Globulin Ratio 0.7 (0.8-1.8); Alk Phos 137 U/L (50-136); Anion Gap 7 mmol/L (6-16); Aspartate Aminotrans (AST/SGOT 20 U/L (12-37); Bilirubin, Total 0.3 mg/dL (0.1-1.0); Blood Urea Nitrogen 23 mg/dL (8-24); Bun/Creatinine Ratio 32.8 (12.0-20.0); CHOL/HDL RATIO 5.6; CO2, Blood 32 mmol/L (21-32); Calcium, Blood 8.8 mg/dL (8.5-10.1); Chloride, Blood 99 mmol/L (98-108); Cholesterol 140 mg/dL (50-200); Globulin, Blood 4.3 g/dL (2.2-4.0); Glomerular Filtration Rate >60 (60-); Glucose, Blood 123 mg/dL (70-99); HDL Cholesterol 25 mg/dL (>39); LDL/HDL RATIO 3.7; Low Density Lipoprotein Chol 93 mg/dL (0-110); Magnesium, Blood 2.7 mg/dL (1.6-2.4); Potassium, Blood 5.1 mmol/L (3.5-5.5); Sodium, Blood 138 mmol/L (136-145); Thyroid Stimulating Hormone 0.493 uIU/mL (0.360-4.800); Total Protein, Blood 7.1 g/dL (6.4-8.2); Triglycerides 108 mg/dL (30-160); Very Low Density Lipoprot Chol 21 mg/dL (6-32)
--- NOTE | 2021-05-04 18:28 | NUR ---
SHIFT SUMMARY PATIENT SITTING UP IN BED JUST FINISHED DINNER. PATIENT IS SBA AND USES WALKER TO GET UP TO RESTROOM. ON 3LNC WITH CONTIN PULSE OX SATTING IN MID 90S. PATIENT STATED REDNESS ON RLE IS IMPROVING. PATIENT BP LOWER THAN PREVIOUS BP AND RECENTLY STATED HE IS FEELING SLIGHTY DIZZY AND LIGHTHEADED. PROVIDER NOTIFIED OF CHANGES. WILL CONTINUE TO MONITOR.
[2021-05-05 04:47] LABS: Hematocrit 42.9 % (37.0-53.0); Hemoglobin 12.8 g/dL (13.5-17.5); Mean Corpuscular HGB 26.9 pg (26.0-34.0); Mean Corpuscular HGB Conc 29.8 g/dL (31.5-36.5); Mean Corpuscular Volume 90 fL (80-100); Mean Platelet Volume 9.9 fL (9.1-12.4); Platelet Count 319 K/mm3 (150-400); RDW Coefficient Variation 16.4 % (11.7-14.2); RDW Standard Deviation 54.5 fL (35.1-46.3); Red Blood Cell Count 4.76 M/mm3 (4.30-5.90); White Blood Cell Count 11.53 K/mm3 (4.00-11.30)
--- NOTE | 2021-05-05 05:18 | NUR ---
SHIFT SUMMARY PATIENT ALERT AND ORIENTED. MEDICATED PER EMAR FOR PAIN. PATIENT HAS BEEN DIZZY AND LIGHT HEADED OVERNIGHT. NO COMPLAINTS OF SHORTNESS OF BREATH. CALL LIGHT WITHIN REACH. REPORT GIVEN TO ONCOMING RN.
[2021-05-05 05:47] LABS: Alanine Aminotransfer (ALT/SGP 46 U/L (12-78); Albumin, Blood 2.6 g/dL (3.4-5.0); Albumin/Globulin Ratio 0.6 (0.8-1.8); Alk Phos 114 U/L (50-136); Anion Gap 6 mmol/L (6-16); Aspartate Aminotrans (AST/SGOT 14 U/L (12-37); Bilirubin, Total 0.3 mg/dL (0.1-1.0); Blood Urea Nitrogen 34 mg/dL (8-24); CO2, Blood 34 mmol/L (21-32); Calcium, Blood 8.7 mg/dL (8.5-10.1); Chloride, Blood 98 mmol/L (98-108); Creatinine, Blood 0.85 mg/dL (0.60-1.20); Globulin, Blood 4.3 g/dL (2.2-4.0); Glomerular Filtration Rate >60 (60-); Glucose, Blood 110 mg/dL (70-99); Potassium, Blood 4.4 mmol/L (3.5-5.5); Sodium, Blood 138 mmol/L (136-145); Total Protein, Blood 6.9 g/dL (6.4-8.2)
--- NOTE | 2021-05-05 19:05 | NUR ---
SHIFT SUMMARY PATIENT INDEPENDENT IN ROOM WITH WALKER. PATIENT CALM AND COOPERATIVE WITH CARE. ON 2LNC WITH CONTINUOUS PULSE OX. RLE REDNESS IMPROVING. PATIENT C/O HEADACHE AND RLE PAIN. MEDICATED PER JUL. NO SIGNIFICANT EVENTS T/O SHIFT. WILL CONTINUE TO MONITOR.
--- NOTE | 2021-05-06 03:48 | NUR ---
SHIFT SUMMARY KRYSTAL: KRYSTAL SLEPT WITHOUT HIS CPAP AND SPO2 REMAINED IN THE MID 90'S.VITAL SIGNS ARE STABLE. WILL CONTINUE TO MONITOR.
[2021-05-06 05:04] LABS: Hematocrit 45.9 % (37.0-53.0); Hemoglobin 13.7 g/dL (13.5-17.5); Mean Corpuscular HGB 26.9 pg (26.0-34.0); Mean Corpuscular HGB Conc 29.8 g/dL (31.5-36.5); Mean Corpuscular Volume 90 fL (80-100); Mean Platelet Volume 9.8 fL (9.1-12.4); Platelet Count 361 K/mm3 (150-400); RDW Coefficient Variation 16.3 % (11.7-14.2); RDW Standard Deviation 54.4 fL (35.1-46.3)
[2021-05-06 06:12] LABS: Alanine Aminotransfer (ALT/SGP 52 U/L (12-78); Albumin, Blood 2.8 g/dL (3.4-5.0); Albumin/Globulin Ratio 0.7 (0.8-1.8); Alk Phos 119 U/L (50-136); Anion Gap 6 mmol/L (6-16); Aspartate Aminotrans (AST/SGOT 20 U/L (12-37); Bilirubin, Total 0.3 mg/dL (0.1-1.0); Blood Urea Nitrogen 29 mg/dL (8-24); Bun/Creatinine Ratio 37.6 (12.0-20.0); CO2, Blood 33 mmol/L (21-32); Calcium, Blood 8.9 mg/dL (8.5-10.1); Chloride, Blood 100 mmol/L (98-108); Creatinine, Blood 0.77 mg/dL (0.60-1.20); Globulin, Blood 4.3 g/dL (2.2-4.0); Glomerular Filtration Rate >60 (60-); Glucose, Blood 107 mg/dL (70-99); Potassium, Blood 4.9 mmol/L (3.5-5.5); Sodium, Blood 139 mmol/L (136-145); Total Protein, Blood 7.1 g/dL (6.4-8.2)
--- NOTE | 2021-05-06 19:22 | NUR ---
END OF SHIFT SUMMARY: PATIENT REPORTED A HEADACHE AND THROBBING IN HIS RIGHT LEG DURING THE DAY. PAIN MEDICATION, ELEVATION OF EXTREMITY AND USE OF RECLINER HELPED. HOWEVER, NEW PAIN MEDICATION ORDER OF TRAMADOL IN THE AFTERNOON REALLY HELPED BRING THE PAIN DOWN PER PATIENT REPORT. PATIENT UP IN THE ROOM INDEPENDENTLY WITH FWW. PATIENT STEADY ON HIS FEET WITH AMBULATION. PATIENT REPORTED THAT HE DOES NOT WEAR 3L O2 VIA NC ALL THE TIME AT HOME, BUT RATHER ON A PRN BASIS. WEENED DOWN TO 1L. PATIENT REQUESTED THAT HE BE ABLE TO TAKE A BREAK FROM THE O2 DUE TO DISCOMFORT. PATIENT TOLERATED RA, BUT DESATURATED TO 88%-89% WITH EXTENDED TALKING. AT REST AND WITHOUT TALKING, PATIENT IN THE LOW TO MID 90'S ON RA. ENCOURAGED USE OF 1L VIA NC TO MAINTAIN A SATURATION IN THE MID-90S NEEDED.
[2021-05-07 04:41] LABS: Hematocrit 46.1 % (37.0-53.0); Hemoglobin 13.9 g/dL (13.5-17.5); Mean Corpuscular HGB Conc 30.2 g/dL (31.5-36.5); Mean Corpuscular Volume 90 fL (80-100); Mean Platelet Volume 9.7 fL (9.1-12.4); Platelet Count 330 K/mm3 (150-400); RDW Coefficient Variation 16.3 % (11.7-14.2); RDW Standard Deviation 54.2 fL (35.1-46.3); Red Blood Cell Count 5.14 M/mm3 (4.30-5.90); White Blood Cell Count 10.23 K/mm3 (4.00-11.30)
--- NOTE | 2021-05-07 05:05 | NUR ---
SHIFT SUMMARY: KRYSTAL IS ON 1 L NC SPO2 MID 90'S. DID NOT REQUEST PAIN MEDS AFTER SCHEDULED TRAMADOL. SLEPT WITHOUT CPAP MOST OF THE NIGHT.
[2021-05-07 05:33] LABS: Anion Gap 4 mmol/L (6-16); Blood Urea Nitrogen 29 mg/dL (8-24); Bun/Creatinine Ratio 36.5 (12.0-20.0); CO2, Blood 35 mmol/L (21-32); Calcium, Blood 8.7 mg/dL (8.5-10.1); Chloride, Blood 98 mmol/L (98-108); Creatinine, Blood 0.79 mg/dL (0.60-1.20); Glomerular Filtration Rate >60 (60-); Glucose, Blood 116 mg/dL (70-99); Potassium, Blood 4.4 mmol/L (3.5-5.5); Sodium, Blood 137 mmol/L (136-145)
--- NOTE | 2021-05-07 09:10 | NUR ---
pt sitting on the side of the bed for breakfast, up indep in room, a/ox3, pleasant and cooperative with care, follows commands well, states his rle is throbbing at 8/10 pain, toradal given this am. lungs are clear in upper [place], a bit course, fine crackles in bases, left base is dim, resp even and unlabored, no cough noted at this time, he reports an occational productive cough with minimal sputum, currently on 3 liters 02 via n/c, hrr, distant, 3+ edema noted to right foot, ppp faint to both, cap refill <3sec, vs stable, afebrile, iv site is power glied to rosalinda, site is clear and patent, but does not draw, wendy, up ad abena, abel, call light in reach.
--- NOTE | 2021-05-07 18:09 | NUR ---
no acute changes this shift, no complaints, feels his leg pain is improving, sat in chair most of the day. call light in reach.
--- NOTE | 2021-05-08 04:01 | NUR ---
PATIENT SLEPT THE MAJORITY OF THE NIGHT. CPAP WAS REMOVED BY PATIENT AND HE STATED IT DRIED HIS NOSE OUT. O2 SATS IN THE LOW 90'S TO 88 ON RA. PATIENT TOOK PM MEDICATIONS AND TOLERATED WELL. A&O X4. VERBALIZED NO QUESTIONS OR CONCERNS. PATIENT IS ANTICIPATING DC TODAY. VITALS REVIEWED. CALL LIGHT IN REACH. BED IN LOWEST POSITION. WILL CONTINUE TO MONITOR UNTIL SHIFT CHANGE.
--- NOTE | 2021-05-08 07:22 | NUR ---
pt sitting on the side of the bed awake, a/ox3, pleasant and cooperative with care, follows commands well, reports pain in right leg 6/10, lungs are clear, dim in bases, resp even and unlabored, no cough noted, took off 02 to do am care, sats dropped to 88%, spoke with him about using o2 at home and monitoring himself, he reports he has it at home, hrr, distant heart sounds, power glide to rosalinda site is clear and patent, but doesn't draw, 2-3+edema noted to right lower ext, is tender to touch, ppp+2, cap refill<3sec, vs stable, afebrile, btx4, abd round semifirm, voids without diff, skin has red right lower ext, he reports is improving daily, abel nguyen, call light in reach.
[2021-05-08] MEDS ORDERED: DOCU100 PO (11:25)
[2021-05-08] MEDS ORDERED: FLUTICASONE-SA1 EAC2 INH (11:25)
[2021-05-08] MEDS ORDERED: XARELTO20 MG PO (11:26)
[2021-05-08] MEDS ORDERED: Nicoderm Cq1 EAC1 TOP (11:26)
[2021-05-08] MEDS ORDERED: CEFD300 PO (11:27)
[2021-05-08] MEDS ORDERED: SPIR25 PO (11:27)
--- NOTE | 2021-05-08 12:11 | NUR ---
pt has been discharged to home, went over instructions with him, he verbalized understanding, power glide removed intact, pt took a shower, he is desating while sleeping, spoke to him about need for cpap while sleeping, asked him to have his ride bring his 0xygen when she comes to pick him, up, new meds were faxed to [facility]. will eat lunch prior to leaving. call light in reach.
--- NOTE | 2021-05-08 13:28 | NUR ---
Pt left via wheelchair with nurse in attendence and all his belongings.
== END 2021-05-08 13:31 | disposition home or self-care (01) | DRG 871 ==
LOC: ER 20:35 → PCU 04-27 00:40 → ICUW 04-27 00:40 → MEDS 05-02 09:13 → ENPENDDIS 05-08 10:48 → MEDS 05-08 13:31
PROVIDERS: Emergency Medicine; Family Medicine; Internal Medicine; Physician Assistant; ADMIT Internal Medicine
PROC: 02HV33Z Insertion of Infusion Device into Superior Vena Cava, Percutaneous Approach (ICD-10-PCS; principal; 2021-04-27)
PROC: 3E043XZ Introduction of Vasopressor into Central Vein, Percutaneous Approach (ICD-10-PCS; 2021-04-27)
PROC: 5A09357 Assistance with Respiratory Ventilation, Less than 24 Consecutive Hours, Continuous Positive Airway Pressure (ICD-10-PCS; 2021-04-27)
DX: A40.8 Other streptococcal sepsis (principal); J18.9 Pneumonia, unspecified organism; J96.01 Acute respiratory failure with hypoxia; R65.21 Severe sepsis with septic shock; L03.115 Cellulitis of right lower limb; N17.9 Acute kidney failure, unspecified; J44.0 Chronic obstructive pulmonary disease with (acute) lower respiratory infection; Z68.43 Body mass index [BMI] 50.0-59.9, adult; I42.2 Other hypertrophic cardiomyopathy; Z20.822 Contact with and (suspected) exposure to COVID-19; F32.A Depression, unspecified; I83.11 Varicose veins of right lower extremity with inflammation; I83.12 Varicose veins of left lower extremity with inflammation; I12.9 Hypertensive chronic kidney disease with stage 1 through stage 4 chronic kidney disease, or unspecified chronic kidney disease; E11.22 Type 2 diabetes mellitus with diabetic chronic kidney disease; N18.30 Chronic kidney disease, stage 3 unspecified; E66.01 Morbid (severe) obesity due to excess calories; I48.0 Paroxysmal atrial fibrillation; Z96.653 Presence of artificial knee joint, bilateral; F17.220 Nicotine dependence, chewing tobacco, uncomplicated; G47.33 Obstructive sleep apnea (adult) (pediatric); M72.2 Plantar fascial fibromatosis; K42.9 Umbilical hernia without obstruction or gangrene; Z99.89 Dependence on other enabling machines and devices; Z79.52 Long term (current) use of systemic steroids; Z79.84 Long term (current) use of oral hypoglycemic drugs; Z79.899 Other long term (current) drug therapy
CPT/HCPCS: 0241U; 36415; 36556; 51702; 71045; 73700; 80048; 80053; 80061; 81001; 82947; 83735; 83880; 84145; 84443; 84484; 85025; 85027; 85651; 86140; 87040; 87086; 87147; 93005; 93010; 93971; 94640; 94660; 94664; 94761; 94762; 96365; 96367; 96375; 97110; 97116; 97162; 97166; 97530; 97535; 99285-25; A9270; C1751; C8923; J0456; J0696; J1650; J1885; J1956; J2540; J2760; J2930; J3010; J7030; J7050; J7060

== ENCOUNTER → 2021-07-09 | Outpatient (CLI) | payer MEDICARE, BC ==
[~2021-07-09] MED LIST changes: +CEFD300 PO; +DOCU100 PO; +FLUTICASONE-SA1 EAC2 INH; +Nicoderm Cq1 EAC1 TOP; +SPIR25 PO; +XARELTO20 MG PO
[2021-07-09 11:26] LABS: BASOPHILS ABSOLUTE AUTO 0.06 K/mm3 (0.00-0.23); BASOPHILS PERCENT AUTO 1 % (0-2); EOSINOPHILS PERCENT AUTO 6 % (0-6); Hematocrit 42.7 % (37.0-53.0); Hemoglobin 12.8 g/dL (13.5-17.5); IMMATURE GRAN PERCENT AUTO 1 % (0-1); LYMPHOCYTES ABSOLUTE AUTO 1.56 K/mm3 (0.84-5.20); LYMPHOCYTES PERCENT AUTO 18 % (21-46); MONOCYTES ABSOLUTE AUTO 0.63 K/mm3 (0.16-1.47); MONOCYTES PERCENT AUTO 7 % (4-13); Mean Corpuscular HGB 28.1 pg (26.0-34.0); Mean Corpuscular Volume 94 fL (80-100); Mean Platelet Volume 9.7 fL (9.1-12.4); NEUTROPHILS ABSOLUTE AUTO 5.75 K/mm3 (1.96-9.15); NEUTROPHILS PERCENT AUTO 67 % (41-73); Platelet Count 283 K/mm3 (150-400); RDW Coefficient Variation 17.1 % (11.7-14.2); RDW Standard Deviation 57.7 fL (35.1-46.3); Red Blood Cell Count 4.56 M/mm3 (4.30-5.90)
[2021-07-09 11:46] LABS: Alanine Aminotransfer (ALT/SGP 23 U/L (12-78); Albumin, Blood 3.3 g/dL (3.4-5.0); Albumin/Globulin Ratio 0.8 (0.8-1.8); Alk Phos 112 U/L (40-126); Anion Gap 7 mmol/L (6-16); Aspartate Aminotrans (AST/SGOT 13 U/L (12-37); Bilirubin, Total 0.3 mg/dL (0.1-1.0); Blood Urea Nitrogen 24 mg/dL (8-24); Bun/Creatinine Ratio 26.7 (12.0-20.0); CO2, Blood 31 mmol/L (21-32); Calcium, Blood 8.5 mg/dL (8.5-10.1); Chloride, Blood 103 mmol/L (98-108); Globulin, Blood 3.9 g/dL (2.2-4.0); Glomerular Filtration Rate >60 (60-); Glucose, Blood 143 mg/dL (70-99); Sodium, Blood 141 mmol/L (136-145); Total Protein, Blood 7.2 g/dL (6.4-8.2)
== END ==
LOC: LAB SHORT 11:19
PROVIDERS: Physician Assistant
DX: R06.00 Dyspnea, unspecified (principal)
CPT/HCPCS: 80053; 83880; 85025

== ENCOUNTER 2021-09-12 14:22 | Inpatient (IN) | payer MEDICARE, BC ==
[~2021-09-12] VITALS: Ht 177.8 cm; Wt 159.0 kg
[~2021-09-12 14:22] MED LIST changes: -ATORVASTATIN CA20 MG PO; -BREZTRI AEROS10.7 GM INH; -KLOR-CON 1010 ME7 PO
[2021-09-12 15:01] LABS: BASOPHILS ABSOLUTE AUTO 0.08 K/mm3 (0.00-0.23); BASOPHILS PERCENT AUTO 1 % (0-2); EOSINOPHILS ABSOLUTE AUTO 0.31 K/mm3 (0.00-0.68); EOSINOPHILS PERCENT AUTO 2 % (0-6); Hematocrit 50.5 % (37.0-53.0); Hemoglobin 15.7 g/dL (13.5-17.5); IMMATURE GRAN PERCENT AUTO 1 % (0-1); LYMPHOCYTES ABSOLUTE AUTO 1.36 K/mm3 (0.84-5.20); LYMPHOCYTES PERCENT AUTO 9 % (21-46); MONOCYTES ABSOLUTE AUTO 1.18 K/mm3 (0.16-1.47); MONOCYTES PERCENT AUTO 8 % (4-13); Mean Corpuscular HGB 27.6 pg (26.0-34.0); Mean Corpuscular HGB Conc 31.1 g/dL (31.5-36.5); Mean Corpuscular Volume 89 fL (80-100); Mean Platelet Volume 9.8 fL (9.1-12.4); NEUTROPHILS ABSOLUTE AUTO 12.41 K/mm3 (1.96-9.15); NEUTROPHILS PERCENT AUTO 81 % (41-73); Platelet Count 319 K/mm3 (150-400); RDW Coefficient Variation 14.6 % (11.7-14.2); RDW Standard Deviation 47.3 fL (35.1-46.3); Red Blood Cell Count 5.68 M/mm3 (4.30-5.90); White Blood Cell Count 15.44 K/mm3 (4.00-11.30)
[2021-09-12 15:32] LABS: Albumin, Blood 3.9 g/dL (3.4-5.0); Albumin/Globulin Ratio 0.8 (0.8-1.8); Bilirubin, Total 0.3 mg/dL (0.1-1.0); Bun/Creatinine Ratio 15.8 (12.0-20.0); Calcium, Blood 9.5 mg/dL (8.5-10.1); Creatinine, Blood 1.9 mg/dL (0.60-1.20); Globulin, Blood 4.7 g/dL (2.2-4.0); Magnesium, Blood 2.7 mg/dL (1.6-2.4); Potassium, Blood 3.8 mmol/L (3.5-5.5); Thyroid Stimulating Hormone 4.98 uIU/mL (0.360-4.800); Total Protein, Blood 8.6 g/dL (6.4-8.2)
[2021-09-12] MEDS ORDERED: KLOR-CON 1010 ME7 PO (17:48)
[2021-09-12 18:31] LABS: Source, Urine Clean Catch
[2021-09-12 19:05] LABS: Appearance, Urine Clear (Clear); Bilirubin, Urine Neg (Neg); Blood, Urine 1+ (Neg); Glucose Qualitative, Urine 4+ (Neg); Ketones, Urine Neg (Neg); Leukocyte Esterase, Urine Neg (Neg); Nitrite, Urine Neg (Neg); Protein, Urine 3+ (Neg); Urobilinogen, Urine NORM (Normal)
[2021-09-12 19:19] LABS: Color, Urine Pale Yellow (P-Yellow)
[2021-09-12 19:20] LABS: Granular Casts Rare /lpf (0)
[2021-09-12 19:21] LABS: Bacteria Mod /hpf; Hyaline Casts 0-2 /lpf (0-2)
[2021-09-12 19:22] LABS: Mucus Light (0-Heavy); Red Blood Cells, Urine Rare /hpf (0-2); Squamous Epithelial Cells Few /hpf (Few)
--- NOTE | 2021-09-13 03:19 | NUR ---
PT BP HAS BEEN TRENDING DOWN SINCE ADMISSION TO FLOOR FROM 110'S TO 70'S SYTOLIC. PT MILDLY DIAPHORETIC, NO COMPLAINTS OF DIZZINESS OR LIGHTHEADIDNESS. DR CORCORAN UPDATED. NEW ORDER FOR LR 500 ML BOLUS AND DECREASE MAINTENANCE FLUIDS TO 100 ML/HR. PT BP REMAINS LOW 70-80'S/30-40'S. DR MORALES UPDATED. NEW ORDERS. MIDODRINE 10 MG PO ONCE. INCREASE LR TO 150 ML/HR. VITALS RECHECKED. BP REMAINS 70-80'S/30-40'S. DR MORALES UPDATED. NEW ORDERS TO TRANSFER TO ICU FOR LEVOPHED SUPPORT.
[2021-09-13 05:13] LABS: BASOPHILS ABSOLUTE AUTO 0.06 K/mm3 (0.00-0.23); BASOPHILS PERCENT AUTO 0 % (0-2); EOSINOPHILS ABSOLUTE AUTO 0.38 K/mm3 (0.00-0.68); EOSINOPHILS PERCENT AUTO 3 % (0-6); Hematocrit 46.8 % (37.0-53.0); Hemoglobin 14.3 g/dL (13.5-17.5); IMMATURE GRAN ABSOLUTE AUTO 0.08 K/mm3 (0.00-0.10); IMMATURE GRAN PERCENT AUTO 1 % (0-1); LYMPHOCYTES ABSOLUTE AUTO 2.05 K/mm3 (0.84-5.20); LYMPHOCYTES PERCENT AUTO 14 % (21-46); MONOCYTES ABSOLUTE AUTO 1.15 K/mm3 (0.16-1.47); MONOCYTES PERCENT AUTO 8 % (4-13); Mean Corpuscular HGB 27.9 pg (26.0-34.0); Mean Corpuscular HGB Conc 30.6 g/dL (31.5-36.5); Mean Corpuscular Volume 91 fL (80-100); Mean Platelet Volume 9.7 fL (9.1-12.4); NEUTROPHILS ABSOLUTE AUTO 10.55 K/mm3 (1.96-9.15); NEUTROPHILS PERCENT AUTO 74 % (41-73); Platelet Count 266 K/mm3 (150-400); RDW Coefficient Variation 14.7 % (11.7-14.2); Red Blood Cell Count 5.13 M/mm3 (4.30-5.90); White Blood Cell Count 14.27 K/mm3 (4.00-11.30)
--- NOTE | 2021-09-13 05:46 | NUR ---
RECEIVED REPORT FROM TAWANA DAVIS AT 0345. PT ARRIVED TO ICU AT 0415. HE WAS ABLE TO STAND UP AND TRANSFER INTO THE ICU BED WITH STEADY GAIT, BUT DID STATE HE FELT "OFF". HE DENIES SOB OR DIZZINESS. TRANSFERRED WITH ANTICIPATION TO START LEVOPHED FOR BP. HE IS A/O X4, COOPERATIVE AND EXPRESSES NEEDS WELL. PUPILS 4MM, BRISK, ERRLA. STATES HE HAS CHRONIC NEUROPATHY IN FEET, WELL CHRONIC BLE EDEMA. AFEBRILE. HR IS SINUS HUSAM TO SR WITH RATE IN 50-60'S. BP SINCE ARRIVAL INTO ICU HAS BEEN STABLE WITH SYSTOLIC IN 110-130'S, MAP 65 OR GREATER. LEVOPHED AVAILABLE BUT NOT STARTED. HE DENIES CHEST PAIN. EDEMA IN BLE IS TRACE, POSTERIOR TIBIAL PULSES FAINT, D. PEDIS PULSES STRONG. HE HAS DRY SKIN ON FEET, CAP REFILL >3 SECONDS, AND BROWN DISCOLORATION ON BLE TO BELOW THE KNEES. HE WAS WEARING CPAP ON MEDICAL FLOOR, BUT ARRIVED ON ROOM AIR, SPO2 96%. HOWEVER, WHEN HE STANDS, SPO2 DECLINES TO UPPER 80'S. 3L NC PLACED AND SPO2 >96%. LUNGS CLEAR WITH EXCEPTION OF RIGHT LOWER LOBE CRACKLES. HE IS A 1 PERSON STANDBY ASSIST WITH WALKER, USING URINAL AND 200ML YELLOW, CLEAR URINE OUT. ABDOMEN IS LARGE AND ROUND, WITH SOME TENDERNESS TO LLQ, APPEARS TO HAVE UMBILICAL HERNIA. DENIES NAUSEA/VOMITING. LR INFUSING INTO RIGHT WRIST IV, 150ML/HR. 20G RAC IV, GOOD BLOOD RETURN AND SALINE LOCKED. ORDERS REVIEWED, WILL TREAT PRESCRIBED.
[2021-09-13 05:49] LABS: Albumin, Blood 3.3 g/dL (3.4-5.0); Albumin/Globulin Ratio 0.8 (0.8-1.8); Bilirubin, Total 0.3 mg/dL (0.1-1.0); Bun/Creatinine Ratio 21.1 (12.0-20.0); Calcium, Blood 8.5 mg/dL (8.5-10.1); Creatinine, Blood 1.85 mg/dL (0.60-1.20); Globulin, Blood 3.9 g/dL (2.2-4.0); Potassium, Blood 3.9 mmol/L (3.5-5.5); Total Protein, Blood 7.2 g/dL (6.4-8.2)
--- NOTE | 2021-09-13 06:36 | NUR ---
PT NOTED TO DESAT INTO 70'S WITH GOOD PLETH, PT WAS SLEEPING AND SNORING. HOME CPAP PLACED WITH 5L O2 AND SPO2 IMPROVED TO UPPER 90'S. PT REMAINED ALERT AND AROUSABLE THROUGHOUT SHIFT. HR IS SINUS HUSAM WITH RATE OCCASIONALLY IN UPPER 40'S TO LOW 50'S. BP HAS REMAINED STABLE SINCE TRANSFER, SBP IN 110-130'S, MAP >65. WILL REPORT TO ONCOMING SHIFT WHEN AVAILABLE.
--- NOTE | 2021-09-13 16:26 | NUR ---
SUMMARY PT RESTING IN BED. A/O X4. PT STATES HE HAS BEEN TIRED TODAY. WHILE AWAKE HE IS ON RA WITHOUT ISSUE. WHEN HE DOZES TO SLEEP HIS SP02 DROPS TO 70'S-80'S, THEREFORE HE WILL PUT HIS HOME CPAP ON THAT HAS O2 BLEED IN. PT HAS BEEN REPOSITIONING SELF AND USING URINAL INDEP. TOLERATING DIET. NO SIGN OF DISTRESS. PT DOWNGRADED TO MEDICAL STATUS AND WILL BE TRANSFERING TO ROOM 303.
--- NOTE | 2021-09-13 18:43 | NUR ---
SHIFT SUMMARY PATIENT ARRIVED ON THE MEDICAL FLOOR AT 1645 TODAY. PATIENT IS A/O X4 PLEASANT AND COOPERATIVE WITH CARE. NO INSULIN COVERAGE NEEDED FOR DINNER. PATIENT IS ON TELE. USES CPAP AT NIGHT. RA DURING THE DAY. CALLS APPROPRIATELY. CALL LIGHT WITHIN REACH. BED IN LOWEST POSITION.
[2021-09-14] MEDS ORDERED: BREZTRI AEROS10.7 GM INH (01:21)
[2021-09-14] MEDS ORDERED: ATORVASTATIN CA20 MG PO (01:21)
[2021-09-14] MEDS ORDERED: DOCU100 PO (01:24)
--- NOTE | 2021-09-14 04:22 | NUR ---
Patient with VSS on RA overnight. Minimal CPAP use as patient did not sleep more then 2-3 hrs. Continuous pulse ox shows O2 at 90% on RA. Patient alert and conversive. Up independently with a walker to bathroom overnight. Patient may go home today if BP stable.
[2021-09-14 05:09] LABS: Hematocrit 43.3 % (37.0-53.0); Hemoglobin 13.3 g/dL (13.5-17.5); Mean Corpuscular HGB Conc 30.7 g/dL (31.5-36.5); Mean Corpuscular Volume 91 fL (80-100); Mean Platelet Volume 10.1 fL (9.1-12.4); Platelet Count 231 K/mm3 (150-400); RDW Coefficient Variation 14.6 % (11.7-14.2); RDW Standard Deviation 48.7 fL (35.1-46.3); Red Blood Cell Count 4.75 M/mm3 (4.30-5.90)
[2021-09-14 05:36] LABS: Albumin, Blood 3.3 g/dL (3.4-5.0); Anion Gap 5 mmol/L (6-16); Blood Urea Nitrogen 25 mg/dL (8-24); Bun/Creatinine Ratio 30.1 (12.0-20.0); CO2, Blood 36 mmol/L (21-32); Calcium, Blood 9.1 mg/dL (8.5-10.1); Chloride, Blood 95 mmol/L (98-108); Creatinine, Blood 0.83 mg/dL (0.60-1.20); Glomerular Filtration Rate 97 (60-); Glucose, Blood 130 mg/dL (70-99); Phosphorus, Blood 2.3 mg/dL (2.5-4.9); Potassium, Blood 3.8 mmol/L (3.5-5.5); Sodium, Blood 136 mmol/L (136-145)
--- NOTE | 2021-09-14 13:17 | NUR ---
DISCHARGE NOTE PATIENT DISCHARGED TODAY AT 1300 VIA WHEELCHAIR WITH SPOUSE. PATIENT'S IV'S WERE DISCONTINUED. TELE REMOVED. PATIENT AND SPOUSE VERBALIZED UNDERSTANDING OF DISCHARGE INSTRUCTIONS GIVEN. PATIENT WILL CALL TO SCHEDULE FOLLOW UP APPT FOR 3 DAYS OUT. VITAL SIGNS STABLE. PATIENT PROVIDED EDUCATION AT DISCHARGE. NOTHING FURTHER TO REPORT.
== END 2021-09-14 13:39 | disposition home or self-care (01) | DRG 917 ==
LOC: ER 14:22 → MEDS 21:04 → ICUE 09-13 04:06 → MEDS 09-13 08:25 → ICUE 09-13 11:33 → MEDS 09-13 16:53
PROVIDERS: Emergency Medicine; Internal Medicine; ADMIT Internal Medicine
PROC: 5A09357 Assistance with Respiratory Ventilation, Less than 24 Consecutive Hours, Continuous Positive Airway Pressure (ICD-10-PCS; principal; 2021-09-13)
DX: T50.2X1A Poisoning by carbonic-anhydrase inhibitors, benzothiadiazides and other diuretics, accidental (unintentional), initial encounter (principal); R57.1 Hypovolemic shock; E87.2 Acidosis; Z68.42 Body mass index [BMI] 45.0-49.9, adult; I48.20 Chronic atrial fibrillation, unspecified; N17.9 Acute kidney failure, unspecified; I95.2 Hypotension due to drugs; D72.829 Elevated white blood cell count, unspecified; H53.8 Other visual disturbances; R60.0 Localized edema; F32.A Depression, unspecified; G47.33 Obstructive sleep apnea (adult) (pediatric); E66.01 Morbid (severe) obesity due to excess calories; E11.42 Type 2 diabetes mellitus with diabetic polyneuropathy; J44.9 Chronic obstructive pulmonary disease, unspecified; I10 Essential (primary) hypertension; Z96.653 Presence of artificial knee joint, bilateral; Z79.899 Other long term (current) drug therapy; Z79.01 Long term (current) use of anticoagulants; Z79.84 Long term (current) use of oral hypoglycemic drugs; Z87.891 Personal history of nicotine dependence
CPT/HCPCS: 36415; 70450; 71045; 71275; 74174; 80053; 80069; 81001; 82947; 83036; 83605; 83735; 83880; 84443; 84484; 85025; 85027; 86850; 86900; 86901; 87040; 87086; 93005; 93010; 94640; 94660; 94664; 94760; 94762; 96361; 96361-59; 96374-59; 99285-25; A9270; G0378; J1815; J2405; J7030; J7060; J7120; Q9967

== ENCOUNTER → 2021-09-12 | Outpatient (CLI) | payer MEDICARE, BC ==
[~2021-09-12] MED LIST changes: +ATORVASTATIN CA20 MG PO; +BREZTRI AEROS10.7 GM INH; +KLOR-CON 1010 ME7 PO
[2021-09-12 14:10] LABS: BASOPHILS ABSOLUTE AUTO 0.07 K/mm3 (0.00-0.23); BASOPHILS PERCENT AUTO 1 % (0-2); EOSINOPHILS ABSOLUTE AUTO 0.31 K/mm3 (0.00-0.68); EOSINOPHILS PERCENT AUTO 2 % (0-6); Hematocrit 51.9 % (37.0-53.0); Hemoglobin 16.3 g/dL (13.5-17.5); IMMATURE GRAN ABSOLUTE AUTO 0.07 K/mm3 (0.00-0.10); IMMATURE GRAN PERCENT AUTO 1 % (0-1); LYMPHOCYTES ABSOLUTE AUTO 1.52 K/mm3 (0.84-5.20); LYMPHOCYTES PERCENT AUTO 11 % (21-46); MONOCYTES ABSOLUTE AUTO 0.98 K/mm3 (0.16-1.47); MONOCYTES PERCENT AUTO 7 % (4-13); Mean Corpuscular HGB 28.2 pg (26.0-34.0); Mean Corpuscular HGB Conc 31.4 g/dL (31.5-36.5); Mean Corpuscular Volume 90 fL (80-100); Mean Platelet Volume 10.2 fL (9.1-12.4); NEUTROPHILS ABSOLUTE AUTO 11.39 K/mm3 (1.96-9.15); NEUTROPHILS PERCENT AUTO 79 % (41-73); Platelet Count 307 K/mm3 (150-400); RDW Coefficient Variation 14.8 % (11.7-14.2); Red Blood Cell Count 5.79 M/mm3 (4.30-5.90); White Blood Cell Count 14.34 K/mm3 (4.00-11.30)
[2021-09-12 14:35] LABS: Albumin, Blood 4.2 g/dL (3.4-5.0); Albumin/Globulin Ratio 0.9 (0.8-1.8); Bilirubin, Total 0.4 mg/dL (0.1-1.0); Bun/Creatinine Ratio 13.7 (12.0-20.0); Calcium, Blood 9.7 mg/dL (8.5-10.1); Creatinine, Blood 2.12 mg/dL (0.60-1.20); Globulin, Blood 4.9 g/dL (2.2-4.0); Potassium, Blood 3.5 mmol/L (3.5-5.5); Total Protein, Blood 9.1 g/dL (6.4-8.2)
== END | disposition home or self-care (01) ==
LOC: LAB 14:07 → LAB SHORT 14:07
PROVIDERS: Physician Assistant Medical
DX: R07.9 Chest pain, unspecified (principal)
CPT/HCPCS: 80053; 84484; 85025

== ENCOUNTER → 2021-12-03 | Outpatient (CLI) | payer MEDICARE, BC ==
[~2021-12-03] MED LIST changes: +ATORVASTATIN CA20 MG PO; +BREZTRI AEROS10.7 GM INH; +KLOR-CON 1010 ME7 PO
[2021-12-03 14:51] LABS: BASOPHILS ABSOLUTE AUTO 0.06 K/mm3 (0.00-0.23); BASOPHILS PERCENT AUTO 0 % (0-2); EOSINOPHILS ABSOLUTE AUTO 0.44 K/mm3 (0.00-0.68); EOSINOPHILS PERCENT AUTO 3 % (0-6); Hematocrit 42.3 % (37.0-53.0); Hemoglobin 13.6 g/dL (13.5-17.5); IMMATURE GRAN PERCENT AUTO 1 % (0-1); LYMPHOCYTES ABSOLUTE AUTO 1.27 K/mm3 (0.84-5.20); LYMPHOCYTES PERCENT AUTO 8 % (21-46); MONOCYTES ABSOLUTE AUTO 1.03 K/mm3 (0.16-1.47); MONOCYTES PERCENT AUTO 7 % (4-13); Mean Corpuscular HGB 26.8 pg (26.0-34.0); Mean Corpuscular HGB Conc 32.2 g/dL (31.5-36.5); Mean Corpuscular Volume 83 fL (80-100); Mean Platelet Volume 9.3 fL (9.1-12.4); NEUTROPHILS ABSOLUTE AUTO 12.61 K/mm3 (1.96-9.15); NEUTROPHILS PERCENT AUTO 81 % (41-73); Platelet Count 323 K/mm3 (150-400); RDW Coefficient Variation 16.5 % (11.7-14.2); RDW Standard Deviation 49.8 fL (35.1-46.3); Red Blood Cell Count 5.08 M/mm3 (4.30-5.90); White Blood Cell Count 15.51 K/mm3 (4.00-11.30)
[2021-12-03 15:07] LABS: Albumin, Blood 3.5 g/dL (3.4-5.0); Albumin/Globulin Ratio 0.9 (0.8-1.8); Bilirubin, Total 0.5 mg/dL (0.1-1.0); Bun/Creatinine Ratio 17.7 (12.0-20.0); Calcium, Blood 8.9 mg/dL (8.5-10.1); Creatinine, Blood 1.64 mg/dL (0.60-1.20); Globulin, Blood 4.1 g/dL (2.2-4.0); Potassium, Blood 4.2 mmol/L (3.5-5.5); Total Protein, Blood 7.6 g/dL (6.4-8.2)
[2021-12-03 15:32] LABS: Creatine Kinase MB 1.4 ng/mL (0.0-3.6); Creatine Kinase MB Index 2.2 (0.0-4.0)
== END | disposition home or self-care (01) ==
LOC: LAB SHORT 14:47
PROVIDERS: Physician Assistant
DX: R53.83 Other fatigue (principal); R06.00 Dyspnea, unspecified
CPT/HCPCS: 80053; 82550; 82553; 84484; 85025

== ENCOUNTER → 2022-02-13 | Outpatient (CLI) | payer BC ==
[2022-02-13 10:01] LABS: BASOPHILS ABSOLUTE AUTO 0.08 K/mm3 (0.00-0.23); BASOPHILS PERCENT AUTO 1 % (0-2); EOSINOPHILS ABSOLUTE AUTO 0.54 K/mm3 (0.00-0.68); EOSINOPHILS PERCENT AUTO 3 % (0-6); Hematocrit 41.4 % (37.0-53.0); Hemoglobin 12.7 g/dL (13.5-17.5); IMMATURE GRAN ABSOLUTE AUTO 0.11 K/mm3 (0.00-0.10); IMMATURE GRAN PERCENT AUTO 1 % (0-1); LYMPHOCYTES ABSOLUTE AUTO 1.18 K/mm3 (0.84-5.20); LYMPHOCYTES PERCENT AUTO 7 % (21-46); MONOCYTES ABSOLUTE AUTO 1.13 K/mm3 (0.16-1.47); MONOCYTES PERCENT AUTO 7 % (4-13); Mean Corpuscular HGB 25.1 pg (26.0-34.0); Mean Corpuscular HGB Conc 30.7 g/dL (31.5-36.5); Mean Corpuscular Volume 82 fL (80-100); Mean Platelet Volume 9.8 fL (9.1-12.4); NEUTROPHILS ABSOLUTE AUTO 14.37 K/mm3 (1.96-9.15); NEUTROPHILS PERCENT AUTO 83 % (41-73); Platelet Count 348 K/mm3 (150-400); RDW Coefficient Variation 16.4 % (11.7-14.2); RDW Standard Deviation 49.1 fL (35.1-46.3); Red Blood Cell Count 5.05 M/mm3 (4.30-5.90); White Blood Cell Count 17.41 K/mm3 (4.00-11.30)
[2022-02-13 10:21] LABS: Albumin, Blood 3.3 g/dL (3.4-5.0); Albumin/Globulin Ratio 0.8 (0.8-1.8); Bilirubin, Total 0.4 mg/dL (0.1-1.0); Bun/Creatinine Ratio 23.8 (12.0-20.0); Calcium, Blood 8.8 mg/dL (8.5-10.1); Creatinine, Blood 1.05 mg/dL (0.60-1.20); Globulin, Blood 4.4 g/dL (2.2-4.0); Potassium, Blood 4.2 mmol/L (3.5-5.5); Total Protein, Blood 7.7 g/dL (6.4-8.2)
== END | disposition home or self-care (01) ==
LOC: LAB 09:49 → LAB SHORT 09:49
PROVIDERS: Physician Assistant
DX: R10.9 Unspecified abdominal pain (principal)
CPT/HCPCS: 80053; 82150; 83690; 84484; 85025

== ENCOUNTER 2022-06-04 12:17 | Day surgery (SDC) | payer BC ==
[~2022-06-04] VITALS: Ht 177.8 cm; Wt 145.7 kg
[2022-06-04] MEDS ORDERED: TRIA50 (12:39)
[2022-06-04] MEDS ORDERED: FERSU300 (12:40)
[2022-06-04] MEDS ORDERED: METR500 (12:40)
--- NOTE | 2022-06-04 13:15 | NUR ---
06/04/22 1315 Zuly Roque TWO ATTEMPTS AT IV. FIRST ATTEMPT IN L HAND BY CJ INFILTRATED. SECOND ATTEMPT IN L WRIST BY RN SUCESSFUL.
--- NOTE | 2022-06-04 14:34 | NUR ---
06/04/22 1434 Mary Terrell 3ML NORMAL SALINE USED TO TATTOO
== END 2022-06-04 15:06 | disposition home or self-care (01) ==
LOC: ORSCSDS 12:17
PROVIDERS: Student in an Organized Health Care Education/Training Program
PROC: 0DBM8ZX Excision of Descending Colon, Via Natural or Artificial Opening Endoscopic, Diagnostic (ICD-10-PCS; principal; 2022-06-04 13:30)
PROC: 3E0H8KZ Introduction of Other Diagnostic Substance into Lower GI, Via Natural or Artificial Opening Endoscopic (ICD-10-PCS; principal; 2022-06-04 13:30)
PROC: 0DB78ZX Excision of Stomach, Pylorus, Via Natural or Artificial Opening Endoscopic, Diagnostic (ICD-10-PCS; principal; 2022-06-04 13:30)
PROC: 0DB58ZX Excision of Esophagus, Via Natural or Artificial Opening Endoscopic, Diagnostic (ICD-10-PCS; principal; 2022-06-04 13:30)
PROC: 0DBN8ZX Excision of Sigmoid Colon, Via Natural or Artificial Opening Endoscopic, Diagnostic (ICD-10-PCS; principal; 2022-06-04 13:30)
PROC: 0DB98ZX Excision of Duodenum, Via Natural or Artificial Opening Endoscopic, Diagnostic (ICD-10-PCS; principal; 2022-06-04 13:30)
DX: C22.9 Malignant neoplasm of liver, not specified as primary or secondary (principal); C18.7 Malignant neoplasm of sigmoid colon; K20.90 Esophagitis, unspecified without bleeding; D12.4 Benign neoplasm of descending colon; D12.5 Benign neoplasm of sigmoid colon; K44.9 Diaphragmatic hernia without obstruction or gangrene; K57.30 Diverticulosis of large intestine without perforation or abscess without bleeding; I10 Essential (primary) hypertension; E78.5 Hyperlipidemia, unspecified; G47.33 Obstructive sleep apnea (adult) (pediatric); J44.9 Chronic obstructive pulmonary disease, unspecified; E11.9 Type 2 diabetes mellitus without complications; E66.01 Morbid (severe) obesity due to excess calories; Z68.42 Body mass index [BMI] 45.0-49.9, adult; Z79.84 Long term (current) use of oral hypoglycemic drugs; Z79.899 Other long term (current) drug therapy
CPT/HCPCS: 82947; 88305; 88312; 88342; J2704; J7120

== ENCOUNTER 2022-06-22 07:53 | Day surgery (SDC) | payer BC ==
[~2022-06-22] VITALS: Ht 177.8 cm; Wt 147.6 kg
[~2022-06-22 07:53] MED LIST changes: +ALBU2.5V5 NEB; -ALBU3IS INH; +ATOR20 PO; +FERSU300 PO; +Flovent 44 mc10.6 GM INH; +METR500 PO; +OXYC15ER PO; +Percocet 5-3251 EACH PO; +SILD25T PO; +TERA5 PO; +TRIA50
[2022-06-22] MEDS ORDERED: TRIAMTERENE-HCTZ PO (08:29)
--- NOTE | 2022-06-22 08:53 | NUR ---
DR ALVAREZ AND DR ADAMS NOTIFIED OF CHEM BG 332. LUNGS CLEAR, BUT DIMINISHED POSTERIOR BASES.
--- NOTE | 2022-06-22 09:12 | NUR ---
PATIENT STATES THEY LEFT DENTURES AND JEWELTRY AT HOME.
--- NOTE | 2022-06-22 11:18 | NUR ---
Patient up to Ambulate independently. Gait steady. Shannon Paws warming gown applied. Discharged via wheelchair to private car for ride home. Patient States Post-Procedure ride home has been arranged.
== END 2022-06-22 11:20 | disposition home or self-care (01) ==
LOC: ORSCMMR 07:53 → ORD 09:45 → ORSCMMR 11:20
PROVIDERS: Surgery
PROC: 0JH60WZ Insertion of Totally Implantable Vascular Access Device into Chest Subcutaneous Tissue and Fascia, Open Approach (ICD-10-PCS; principal; 2022-06-22 09:45)
DX: C18.7 Malignant neoplasm of sigmoid colon (principal); F10.21 Alcohol dependence, in remission; F41.9 Anxiety disorder, unspecified; J44.9 Chronic obstructive pulmonary disease, unspecified; E11.9 Type 2 diabetes mellitus without complications; I10 Essential (primary) hypertension; G47.33 Obstructive sleep apnea (adult) (pediatric); E66.01 Morbid (severe) obesity due to excess calories; Z68.43 Body mass index [BMI] 50.0-59.9, adult; Z79.85 Long-term (current) use of injectable non-insulin antidiabetic drugs; Z79.84 Long term (current) use of oral hypoglycemic drugs; Z79.899 Other long term (current) drug therapy; Z87.891 Personal history of nicotine dependence
CPT/HCPCS: 77001; 82947; C1788; J0690; J1642; J2250; J2704; J2795; J3010; J7120

== ENCOUNTER 2022-11-09 08:06 | Day surgery (SDC) | payer BC ==
[~2022-11-09] VITALS: Ht 177.8 cm; Wt 134.9 kg
[2022-11-09] VITALS (9 sets, daily range): BP systolic 105–127; BP diastolic 44–64
[~2022-11-09 08:06] MED LIST changes: +Flovent Diskus50 MCG INH; +SILD50TA PO; +TRIAMTERENE-HCTZ PO
--- NOTE | 2022-11-09 08:30 | NUR ---
Ambulatory in Day Surgery History, Chart, Medications and Allergies reviewed before start of procedure.Lungs clear T/O to Auscultation. Patient confirms NPO status and agrees with scheduled surgery. Patient reports completing Chlorhexadine shower X2 prior to admission to hospital.Surgical site prepped with 2% Chlorhexidine cloth wipe. Patient States Post-Procedure ride home has been arranged.Pt to radiology for CH1V.
[2022-11-09] MEDS ORDERED: PANT40 PO (08:42)
[2022-11-09] MEDS ORDERED: ONDA4ODT MM (08:42)
[2022-11-09] MEDS ORDERED: POTA10T PO (08:44)
[2022-11-09] MEDS ORDERED: DYAZIDE 37.5-21 EACH PO (08:44)
--- NOTE | 2022-11-09 11:40 | NUR ---
Discharge instructions reviewed with patient. Patient verbalizes understanding. Copy given to patient to take home. Patient up to Ambulate independently. Gait steady with standby assist. Patient States Post-Procedure ride home has been arranged. Discharged via wheelchair to private car for ride home.
== END 2022-11-09 11:39 | disposition home or self-care (01) ==
LOC: ORSCMMR 08:06 → ORD 09:15 → ORSCMMR 09:15
PROVIDERS: Surgery
PROC: 0JWT0WZ Revision of Totally Implantable Vascular Access Device in Trunk Subcutaneous Tissue and Fascia, Open Approach (ICD-10-PCS; principal; 2022-11-09 09:15)
DX: T82.514A Breakdown (mechanical) of infusion catheter, initial encounter (principal); C18.7 Malignant neoplasm of sigmoid colon; G47.33 Obstructive sleep apnea (adult) (pediatric); J44.9 Chronic obstructive pulmonary disease, unspecified; Z79.4 Long term (current) use of insulin; E11.9 Type 2 diabetes mellitus without complications; I10 Essential (primary) hypertension; F17.220 Nicotine dependence, chewing tobacco, uncomplicated; Z79.899 Other long term (current) drug therapy
CPT/HCPCS: 71045; 77001; 82947; C1788; J0690; J1642; J2250; J2704; J3010; J7120

== ENCOUNTER → 2024-06-30 | Outpatient (CLI) | payer BC ==
[~2024-06-30] MED LIST changes: +DYAZIDE 37.5-21 EACH PO; +ONDA4ODT MM; +PANT40 PO; +POTA10T PO
[2024-06-30 12:49] LABS: C-REACTIVE PROTEIN, EXT RANGE 3.74 mg/dL (0.000-0.300)
[2024-06-30 12:58] LABS: Thyroid Stimulating Hormone 2.46 uIU/mL (0.360-4.800)
== END | disposition home or self-care (01) ==
LOC: LAB SHORT 10:42 → LAB 10:42
PROVIDERS: Family Medicine
DX: M62.81 Muscle weakness (generalized) (principal); R53.83 Other fatigue
CPT/HCPCS: 84443; 85651; 86140

== ENCOUNTER 2024-07-09 09:10 | Inpatient (IN) | payer MEDICARE, BC ==
[2024-07-09] VITALS (40 sets, daily range): BP systolic 65–130; BP diastolic 38–95
[~2024-07-09] VITALS: Ht 188 cm; Wt 126.9 kg
[2024-07-09] MEDS ORDERED: VANCOMYCIN HCL IV ONE (09:20)
[2024-07-09] MEDS ORDERED: NS IV ONE (09:20)
[2024-07-09] MEDS ORDERED: NS 1,000 ML IV SCH ×2 (09:20)
[2024-07-09] MEDS ORDERED: Cefepime HCl 2,000 MG in NS 50 ML IV ONE (09:20)
[2024-07-09] MEDS ORDERED: Acetaminophen 500 MG Tab PO ONE (09:25)
[2024-07-09] MEDS ORDERED: Albuterol 2.5 MG/3 ML VIAL INH SCH (09:25)
[2024-07-09 09:26] LABS: PCO2 Arterial 42.8 mmHg (35-45); PO2 Arterial 54.1 mmHg (80-100)
[2024-07-09 09:27] LABS: pH Blood Arterial 7.38 (7.35-7.45)
[2024-07-09 09:35] LABS: Calcium, Ionized (POC) 1.11 mmol/L (1.10-1.46); Chloride (POC) 99 mmol/L (98-108); Creatinine (POC) 2.2 mg/dL (0.8-1.3); Glucose (ISTAT POC) 103 mg/dL (70-99); Hemoglobin (POC) 13.6 g/dL (13.5-17.5); Potassium (POC) 3.5 mmol/L (3.5-5.5); Sodium (POC) 137 mmol/L (135-148); Total CO2 (POC) 25 mmol/L (21-32)
[2024-07-09] MEDS ORDERED: Vancomycin HCL 1,250 MG in NS 250 ML IV ONE (09:35)
[2024-07-09 09:52] LABS: BASOPHILS ABSOLUTE AUTO 0.07 K/mm3 (0.00-0.23); BASOPHILS PERCENT AUTO 0 % (0-2); EOSINOPHILS ABSOLUTE AUTO 0.23 K/mm3 (0.00-0.68); EOSINOPHILS PERCENT AUTO 1 % (0-6); Hematocrit 39.3 % (37.0-53.0); Hemoglobin 12.2 g/dL (13.5-17.5); IMMATURE GRAN PERCENT AUTO 1 % (0-1); LYMPHOCYTES ABSOLUTE AUTO 1.91 K/mm3 (0.84-5.20); LYMPHOCYTES PERCENT AUTO 10 % (21-46); MONOCYTES ABSOLUTE AUTO 1.22 K/mm3 (0.16-1.47); MONOCYTES PERCENT AUTO 6 % (4-13); Mean Corpuscular HGB 30.1 pg (26.0-34.0); Mean Corpuscular Volume 97 fL (80-100); NEUTROPHILS ABSOLUTE AUTO 15.81 K/mm3 (1.96-9.15); NEUTROPHILS PERCENT AUTO 81 % (41-73); NRBC ABSOLUTE 0.04 K/mm3 (0.00-0.02); NRBC Auto 0.2 /100 WBC (0.0-0.2); Platelet Count 204 K/mm3 (150-400); RDW Coefficient Variation 17.4 % (11.7-14.2); RDW Standard Deviation 62.7 fL (35.1-46.3); Red Blood Cell Count 4.05 M/mm3 (4.30-5.90); White Blood Cell Count 19.44 K/mm3 (4.00-11.30)
[2024-07-09 10:02] LABS: International Normalized Ratio 1.12; Prothrombin Time Results 11.9 Sec (9.7-11.5)
[2024-07-09 10:08] LABS: Albumin, Blood 3.1 g/dL (3.4-5.0); Albumin/Globulin Ratio 0.9 (0.8-1.8); Bilirubin, Total 0.5 mg/dL (0.1-1.0); Bun/Creatinine Ratio 16.1 (12.0-20.0); Calcium, Blood 8.4 mg/dL (8.5-10.1); Creatinine, Blood 1.99 mg/dL (0.60-1.20); Globulin, Blood 3.6 g/dL (2.2-4.0); Magnesium, Blood 2.2 mg/dL (1.6-2.4); Phosphorus, Blood 1.7 mg/dL (2.5-4.9); Potassium, Blood 3.5 mmol/L (3.5-5.5); Total Protein, Blood 6.7 g/dL (6.4-8.2)
[2024-07-09 10:32] LABS: Influenza A, PCR NEGATIVE (NEGATIVE); Influenza B, PCR NEGATIVE (NEGATIVE); Resp Syncytial Virus, PCR NEGATIVE (NEGATIVE); SARS-Cov-2 (COVID-19) PCR, MMC NEGATIVE (NEGATIVE)
[2024-07-09] MEDS ORDERED: GABA800 PO (10:41)
[2024-07-09] MEDS ORDERED: SILD50TA PO (10:41)
[2024-07-09 11:30] LABS: Source, Urine Clean Catch
[2024-07-09 11:42] LABS: Appearance, Urine Clear (Clear); Bilirubin, Urine Neg (Neg); Blood, Urine Neg (Neg); Color, Urine Yellow (P-Yellow); Glucose Qualitative, Urine 4+ (Neg); Ketones, Urine Neg (Neg); Leukocyte Esterase, Urine Neg (Neg); Nitrite, Urine Neg (Neg); Protein, Urine 1+ (Neg); Specific Gravity, Urine 1.015 (1.003-1.022); Urobilinogen, Urine NORM (Normal)
[2024-07-09] MEDS ORDERED: FLU VACC TS2024-25(6MOS UP)/PF 45 MCG/0.5 ML SYRINGE IM ONE (12:25)
[2024-07-09] MEDS ORDERED: Azithromycin 500 MG in NS 250 ML IV SCH (13:00)
[2024-07-09] MEDS ORDERED: Azithromycin 500 MG VIAL ONE (13:53)
[2024-07-09] MEDS ORDERED: Lactated Ringer's 1,000 ML IV ONE (14:00)
[2024-07-09] MEDS ORDERED: Hydrocortisone Sod Succinate 100 MG Vial IV SCH (14:00)
[2024-07-09] MEDS ORDERED: Vasopressin 20 UNITS in NS 100 ML IV SCH (14:00)
[2024-07-09] MEDS ORDERED: Piperacillin/Tazobactam Sod 3.375 GM in NS 100 ML IV SCH (14:00)
--- NOTE | 2024-07-09 15:38 | NUR ---
PT ARRIVED TO ICU 15 AT 1310 WITH ED RN LYNNE, TRANSFERRED TO BED. PT ANSWERED QUESTIONS VERBALLY, COMPLAINED OF PAIN AT THE CHEST WITH TOUCH AND INSPIRATION. IV ANTIBIOTICS INITIATED, FLUID BOLUS GIVEN, NOREPI AND VASO ON BOARD, FAMILY IN AND OUT TO SEE, DR. SALMON IN TO SEE. PT RESTING QUIETLY. AIRVO AT 35%, BREATHING EASY, NO EVIDENCE OF DIFFICULTY WITH WORK OF BREATHING, SATS >91%. ECHO PERFORMED.
--- NOTE | 2024-07-09 17:32 | NUR ---
KRYSTAL WILL RESPOND TO QUESTIONS, HE IS VERY SLEEPY. DENIES ANY NEED FOR PAIN MEDICATION. CONTINUES ON NOREPINEPHRINE AND VASOPRESSIN. REPOSITIONED Q2 AND PRN. FAMILY IN AND OUT.
[2024-07-09] MEDS ORDERED: Insulin Regular 100 UNIT/ML 10ML Vial SC SCH (18:00)
--- NOTE | 2024-07-09 18:54 | NUR ---
KRYSTAL JUST WOKE UP, ASKING FOR A BLANKET, ASKING FOR FOOD. HE IS JOKING WITH AND STAFF. HE TOOK IN SOME WATER AND ICE CHIPS. HE WAS ABLE TO COUGH A LARGE AMOUNT OF RED TINGED PHLEGM, MORE PINK/ORANGE IN COLOR. TEMP 100.1. CONTINUES TO COMPLAIN OF PAIN T/O HIS CHEST WITH DEEP BREATHING AND COUGHING.
[2024-07-09] MEDS ORDERED: FentaNYL Citrate 50 MCG/ML 2 ML Injection IV PRN (19:10)
--- NOTE | 2024-07-09 20:30 | NUR ---
ASSUMPTION OF CARE PT LYING IN BED TALKING TO GRANDDAUGHTER, WHO IS HIGHLY INVESTED IN CARE AND HELPED WITH TURNS DURING ASSESSMENT. PT LETHARGIC, IN PAIN WITH SUBTLE MOVEMENT, PARTICULARLY JIE, BUT ORIENTED TO ALL. TEMP 100.4 AT START OF SHIFT AND TRENDING DOWN BELOW 100. HR 81 SINUS RHYTHM WITH STABLE BP, MAP >65. AT START OF SHIFT LEVOPHED AT 10 AND VASOPRESSIN AT 0.04. AT TIME OF WRITING THIS NOTE, LEVO AT 4 AND VASO OFF. NO CHEST PAIN /PRESSURE. NO SOB. AIRVO AT 60L/MIN AND 50% FI02, DECREASED FROM 70% AT START OF SHIFT. LUNGS RHONCHOROUS THROUGHOUT. PT COUGHING UP MEDIUM PINK/ORANGE SPUTUM. NO AB PAIN; BOWELS HYPOACTIVE. PT SWALLOWS WATER, ICE, PILLS WELL. TEMP COLES DRAINING TO GRAVITY, DARK YELLOW/NORMA URINE. LEVO INFUSING THROUGH MEDIPORT AT 4. ZOSYN INFUSING THROUGH R AC AT 25ML/MIN. GRANDDAUGHTER ALLOWED TO STAY IN ROOM TONIGHT DUE TO HER ABILITY TO AID IN CARE. PT HAS CALL LIGHT HANDY.
[2024-07-09] MEDS ORDERED: Lactobacil 2-S.Thermo-Bifido 1 1 Cap PO SCH (21:00)
[2024-07-09] MEDS ORDERED: Pantoprazole Sodium 40 MG Injection IV SCH (21:00)
[2024-07-10] VITALS (45 sets, daily range): BP systolic 109–147; BP diastolic 55–87
--- NOTE | 2024-07-10 02:48 | NUR ---
TRANSFER OF CARE AT 0140, PT PUT IN WHEELCHAIR WITH BELONGINGS AND [facility] AND BROUGHT TO ROOM 355 WHERE RACEHL RN WAS WAITING TO RECEIVE PT. REPORT WAS GIVEN TO RACHEL BEFORE THE PHYSICAL TRANSFER OF PT. PT STABLE AT TIME OF TRANSFER. VSS STABLE. NO CHEST PAIN/PRESSURE, SOB, AB PAIN.
[2024-07-10 03:11] LABS: Hematocrit 36.1 % (37.0-53.0); Hemoglobin 11.3 g/dL (13.5-17.5); Mean Corpuscular HGB Conc 31.3 g/dL (31.5-36.5); Mean Corpuscular Volume 96 fL (80-100); Platelet Count 142 K/mm3 (150-400); RDW Coefficient Variation 17.4 % (11.7-14.2); RDW Standard Deviation 61.1 fL (35.1-46.3); Red Blood Cell Count 3.77 M/mm3 (4.30-5.90); White Blood Cell Count 27.37 K/mm3 (4.00-11.30)
[2024-07-10 03:27] LABS: Albumin, Blood 2.5 g/dL (3.4-5.0); Albumin/Globulin Ratio 0.7 (0.8-1.8); Bilirubin, Total 0.8 mg/dL (0.1-1.0); Bun/Creatinine Ratio 23.3 (12.0-20.0); Calcium, Blood 8.1 mg/dL (8.5-10.1); Creatinine, Blood 1.29 mg/dL (0.60-1.20); Globulin, Blood 3.7 g/dL (2.2-4.0); Potassium, Blood 4.3 mmol/L (3.5-5.5); Total Protein, Blood 6.2 g/dL (6.4-8.2)
[2024-07-10 03:36] LABS: BAND PERCENT MAN 35 % (0-8); BASOPHILS PERCENT MAN 0 % (0-2); EOSINOPHILS PERCENT MAN 0 % (0-6); METAMYELOCYTE ABSOLUTE MAN 1.64 K/mm3 (0.00-0.00); METAMYELOCYTE PERCENT MAN 6 % (0-0); MONOCYTES ABSOLUTE MAN 0.82 K/mm3 (0.16-1.47); MONOCYTES PERCENT MAN 3 % (4-13); SEG NEUTROPHILS PERCENT MAN 56 % (41-73); TOTAL CELLS COUNTED 100
--- NOTE | 2024-07-10 06:28 | NUR ---
SHIFT SUMMARY PT LYING IN BED SLEEPING WITH GRANDDAUGHTER IN THE ROOM. PT REMAINS LETHARGIC, AND IN PAIN WITH SUBTLE MOVEMENTS, PARTICULARLY JIE, BUT ORIENTED TO ALL. TEMP 100.4 AT START OF SHIFT AND TRENDING DOWN TO 99.5. HR 85 SINUS RHYTHM WITH STABLE BP, MAP >65. AT START OF SHIFT LEVOPHED AT 10 AND VASOPRESSIN AT 0.04. AT END OF SHIFT, LEVO AND VASO OFF. NO CHEST PAIN /PRESSURE. NO SOB. AIRVO AT 40L/MIN AND 50% FI02, DECREASED FROM 60L/MIN AND 70% AT START OF SHIFT. LUNGS REMAIN RHONCHOROUS THROUGHOUT, BUT AVERAGE RESPIRATORY RATE IS LOW TO MID 20'S COMPARED TO HIGH 20'S AT START OF SHIFT. PT COUGHED UP SMALL AMOUNTS OF PINK/ORANGE SPUTUM. NO AB PAIN; BOWELS HYPOACTIVE. PT SWALLOWS WATER, ICE, PILLS WELL. TEMP COLES DRAINING TO GRAVITY, YELLOW URINE. ZOSYN INFUSING THROUGH MEDIPORT AT 25ML/MIN. WILL INQUIRE ABOUT ANY NEED FOR HEPARIN LOCKING AFTER INFUSION IS FINISHED. PT HAS CALL LIGHT HANDY, AND PT GRANDDAUGHTER IS IN ROOM TO RESPOND TO AND RELAY PT'S NEEDS. REPORT GIVEN TO ONCOMING NURSE, AFTER WHICH, CARE OF PT TRANSFERRED.
[2024-07-10] MEDS ORDERED: Enoxaparin 40 MG/0.4 ML SYR SC SCH (09:00)
[2024-07-10] MEDS ORDERED: Citalopram Hydrobromide 20 MG Tab PO SCH (09:00)
[2024-07-10] MEDS ORDERED: Empagliflozin 25 MG TAB PO SCH (09:00)
[2024-07-10] MEDS ORDERED: Vancomycin HCL 1,250 MG in NS 250 ML IV SCH (10:00)
[2024-07-10] MEDS ORDERED: Vancomycin HCL 1,500 MG in NS 250 ML IV SCH (11:00)
[2024-07-10] MEDS ORDERED: NS 250 ML IV PRN (11:00)
--- NOTE | 2024-07-10 18:26 | NUR ---
SUMMARY PT A/O X4. WAS ON AIRVO MOST OF THE DAY. THIS EVENING SWITCHED TO 9L HFNC AND PT IS TOLERATING WELL. STRONG HACKING COUGH WITH SMALL AMT OF SPUTUM PRODUCTION. CT PE STUDY DONE THIS EVENING. HAS NOT NEEDED PRESSORS TODAY. TOLERATING MEALS WITHOUT ISSUE. NO SIGN OF DISTRESS. SUPPORTIVE FAMILY AT BEDSIDE.
--- NOTE | 2024-07-10 21:03 | NUR ---
SHIFT ASSESSMENT/ ASSUMPTION OF CARE FROM TAWANA DUNCAN AT START OF SHIFT. PATIENT IS DOING WELL, A&OX4 GCS15 NO COMPLAINTS OF PAIN AT THIS TIME. VITAL SIGNS ARE BP:118/58 HR:88 SPO2@ 90% ON HFNC @ 9LPM. FLOEY IN PLACE AND PATENT. PT WAS OFFERED ORAL CARE BUT REFUSED. CALL LIGHT WAS PLACED WITHIN REACH OF PATIENT AND THEY WERE INFORMED TO PRESS CALL BUTTON TO CALL FOR THE NURSE.
[2024-07-11] VITALS (19 sets, daily range): BP systolic 136–166; BP diastolic 70–108
--- NOTE | 2024-07-11 06:42 | NUR ---
SHIFT SUMMARY: NO CHANGES THROUGHOUT THE SHIFT. FLOLEY WAS REMOVED AROUND 0500, PATIENT SAT ON SIDE OF BED AND ATTEMPTED TO USE URNIAL. PATIENT HAD THE URGE TO URINATE BUT WAS UNABLE TO URINATE AT THIS TIME. PT WAS ABLE TO STAND VIA 2 PERSON ASSIST BUT STATED THEY FELT DIZZY AND SAT BACK DOWN. PATIENT LAYED DOWN AND WAS BOOSTED UP IN BED, CALL LIGHT WAS PUT WITHIN REACH OF PATIENT AND THEY WERE TOLD TO PRESS THE CALL BUTTON IF THEY NEED HELP.
[2024-07-11 09:23] LABS: BASOPHILS ABSOLUTE AUTO 0.06 K/mm3 (0.00-0.23); BASOPHILS PERCENT AUTO 0 % (0-2); EOSINOPHILS ABSOLUTE AUTO 0.02 K/mm3 (0.00-0.68); EOSINOPHILS PERCENT AUTO 0 % (0-6); Hematocrit 34.4 % (37.0-53.0); Hemoglobin 10.8 g/dL (13.5-17.5); IMMATURE GRAN ABSOLUTE AUTO 0.62 K/mm3 (0.00-0.10); IMMATURE GRAN PERCENT AUTO 2 % (0-1); LYMPHOCYTES ABSOLUTE AUTO 0.51 K/mm3 (0.84-5.20); LYMPHOCYTES PERCENT AUTO 2 % (21-46); MONOCYTES ABSOLUTE AUTO 0.69 K/mm3 (0.16-1.47); MONOCYTES PERCENT AUTO 3 % (4-13); Mean Corpuscular HGB 29.7 pg (26.0-34.0); Mean Corpuscular HGB Conc 31.4 g/dL (31.5-36.5); Mean Corpuscular Volume 95 fL (80-100); Mean Platelet Volume 10.8 fL (9.1-12.4); NEUTROPHILS ABSOLUTE AUTO 23.94 K/mm3 (1.96-9.15); NEUTROPHILS PERCENT AUTO 93 % (41-73); Platelet Count 142 K/mm3 (150-400); RDW Coefficient Variation 17.5 % (11.7-14.2); RDW Standard Deviation 61.7 fL (35.1-46.3); Red Blood Cell Count 3.64 M/mm3 (4.30-5.90); White Blood Cell Count 25.84 K/mm3 (4.00-11.30)
[2024-07-11 09:44] LABS: Bun/Creatinine Ratio 31.6 (12.0-20.0); Calcium, Blood 8.5 mg/dL (8.5-10.1); Creatinine, Blood 0.82 mg/dL (0.60-1.20); Potassium, Blood 3.2 mmol/L (3.5-5.5)
[2024-07-11 09:49] LABS: Vancomycin, Trough 12.3 ug/mL (5.0-10.0)
[2024-07-11] MEDS ORDERED: Potassium Chloride 20 MEQ/15 ML UDC PO ONE (10:20)
[2024-07-11] MEDS ORDERED: Potassium Chloride 20 MEQ TabCR PO ONE (12:00)
[2024-07-11] MEDS ORDERED: CefTRIAXone Sodium 1,000 MG in NS 100 ML IV SCH (12:00)
[2024-07-11] MEDS ORDERED: Hydrocortisone Sod Succinate 100 MG Vial IV SCH (14:00)
[2024-07-11 15:55] LABS: Magnesium, Blood 2.7 mg/dL (1.6-2.4)
[2024-07-11 15:59] LABS: Calcium, Blood 8.2 mg/dL (8.5-10.1); Creatinine, Blood 0.73 mg/dL (0.60-1.20); Phosphorus, Blood 1.2 mg/dL (2.5-4.9); Potassium, Blood 3.3 mmol/L (3.5-5.5)
--- NOTE | 2024-07-11 17:55 | NUR ---
SUMMARY PT A/OX4. OOB TO CHAIR FOR BREAKFAST AND TO BSC 2 PERSON ASSIST. TOLERATING MEALS WITHOUT ISSUE. HAS BEEN ON RA THIS AFTERNOON. STATUS CHANGE TO MEDICAL. NO ACUTE CHANGES THIS SHIFT.
[2024-07-11] MEDS ORDERED: Potassium Phosphate,Monobasic 500 MG Tablet PO SCH (20:30)
--- NOTE | 2024-07-11 21:34 | NUR ---
ASSUMED CARE AT START OF SHIFT FROM MEKA GILLIAM. PATIENT'S TRANSFER STATUS HAS BEEN CHAGED TO [facility] WITH NO TELE. PATIENT IS A&OX4 GCS15 NO COMPLAINTS OF PAIN AT THIS TIME. PATIENT HAS BEEN OFF O2 AND ON ROOM AIR THOUGHOUT THE DAY. IV LINES FLUSHED. PT WAS ABLE TO SIT ON EDGE OF BED AND USE THE URINAL, PT STATED THAT THEY ARE STILL EXPEREINCING A BURNING SENSATION AND NOTICE A FOWL SMELL WHEN THEI URINATE. PT WAS ABLE TO STAND ON THEIR OWN BUT WILL START FEELING DIZZY AND SHORT OF BREATH AFTER A COUPLE MINTUES, PT REFUSED TO O2 AND SHORTNESS OF BREATH RESOLVED AFTER SITTING IN BED FOR A COUPLE MINUTES. PT WAS ABLE TO REPOSITION AND SCOOT THEMSELVES INTO A COMFORTABLE POSITION IN BED. CALL LIGHT AND TISSUE BOX WAS PLACED WITHIN OF PATIENT'S REACH AND THEY WERE INSTRUCTED TO PRESS THE CALL LIGHT WHEN THEY NEED ASSISTANCE.
[2024-07-12] MEDS ORDERED: Acetaminophen 325 MG TABLET PO PRN (03:35)
[2024-07-12 03:45] LABS: BASOPHILS ABSOLUTE AUTO 0.05 K/mm3 (0.00-0.23); BASOPHILS PERCENT AUTO 0 % (0-2); EOSINOPHILS ABSOLUTE AUTO 0.16 K/mm3 (0.00-0.68); EOSINOPHILS PERCENT AUTO 1 % (0-6); Hematocrit 33.3 % (37.0-53.0); Hemoglobin 10.8 g/dL (13.5-17.5); IMMATURE GRAN ABSOLUTE AUTO 0.24 K/mm3 (0.00-0.10); IMMATURE GRAN PERCENT AUTO 1 % (0-1); LYMPHOCYTES ABSOLUTE AUTO 0.82 K/mm3 (0.84-5.20); LYMPHOCYTES PERCENT AUTO 4 % (21-46); MONOCYTES ABSOLUTE AUTO 0.94 K/mm3 (0.16-1.47); MONOCYTES PERCENT AUTO 4 % (4-13); Mean Corpuscular HGB 30.3 pg (26.0-34.0); Mean Corpuscular HGB Conc 32.4 g/dL (31.5-36.5); Mean Corpuscular Volume 94 fL (80-100); Mean Platelet Volume 10.8 fL (9.1-12.4); NEUTROPHILS ABSOLUTE AUTO 19.66 K/mm3 (1.96-9.15); NEUTROPHILS PERCENT AUTO 90 % (41-73); NRBC ABSOLUTE 0.02 K/mm3 (0.00-0.02); NRBC Auto 0.1 /100 WBC (0.0-0.2); Platelet Count 135 K/mm3 (150-400); RDW Coefficient Variation 17.6 % (11.7-14.2); RDW Standard Deviation 61.1 fL (35.1-46.3); Red Blood Cell Count 3.56 M/mm3 (4.30-5.90); White Blood Cell Count 21.87 K/mm3 (4.00-11.30)
[2024-07-12 03:54] VITALS: BP 172/101
[2024-07-12 03:59] LABS: Bun/Creatinine Ratio 41.3 (12.0-20.0); Calcium, Blood 8.3 mg/dL (8.5-10.1); Creatinine, Blood 0.65 mg/dL (0.60-1.20); Potassium, Blood 3.1 mmol/L (3.5-5.5)
[2024-07-12] MEDS ORDERED: HydrALAZINE HCl 20 MG / ML 1ML Vial IV PRN (04:10)
[2024-07-12] MEDS ORDERED: Potassium Chloride 40 MEQ IV SCH (04:10)
[2024-07-12] MEDS ORDERED: Potassium Chloride 40 MEQ in NS 250 ML IV ONE (04:35)
--- NOTE | 2024-07-12 06:32 | NUR ---
SHIFT SUMMARRY: PT REMAINED CALM THROUGHOUT THE SHIFT. DURING THE NIGHT PT STARTED COUGHING AND THEY STARTED TO DESAT, SPO2 DROPPED TO THE 80S. PT WAS GIVEN O2 VIA NC STARTED AT 2 LPM WHICH ONLY INCREASED SPO2 TO HIGH 80S THEN O2 WAS INCREASED TO 4LPM AND THEIR SPO2 SAT INCREASED TO 92%. ALSO, THE IV IN THE LEFT ARM WAS NO LONGER USABLE AND IT WAS REMOVED. ATTEMPTED TO START A NEW IV BUT WAS UNSUCCESFUL AND THEN PT REFUSED ANY FURTHER ATTEMPTS FOR AN IV. PT SAT UP AT THE EDGE OF THEIR BED WITHOUT ASSISTANCE AND USED URINAL, BUT NEEDED ASSITANCE TO GET BACK INTO BED. CALL LIGHT WA PLACED WITHIN REACH OF THE PATIENT AND THEY WERE TOLD TO PRESS THE CALL LIGHT IF THE NEED HELP.
[2024-07-12] MEDS ORDERED: Potassium Chloride 20 MEQ TabCR PO ONE (06:50)
[2024-07-12 07:00] VITALS: BP 160/89
[2024-07-12] MEDS ORDERED: PredniSONE 20 MG Tab PO ONE (08:15)
[2024-07-12] MEDS ORDERED: Amoxicillin/Clavulanate K 875 MG Tab PO SCH (09:00)
[2024-07-12 09:15] VITALS: BP 131/54
--- NOTE | 2024-07-12 09:23 | NUR ---
SHIFT ASSESSMENT ASSUMED CARE OF PT @ 0700, BEDSIDE REPORT RECEIVED FROM [facility] NURSE. PT MEDICAL STATUS. PT A&OX4, WITHDRAWN BUT COOPERATIVE WITH CARE. AMBULATORY WITH SBA. INITIALLY ON 4LPM O2 VIA NC c SATS >90%, PT TOOK OF NC, SATS >90% ON RA. FREQUENT NON-PRODUCTIVE COUGH. TOLERATING PO INTAKE, LIGHT APPETITE. USING URINAL INDEPENDENTLY. PLAN ON WORKING WITH PHYSICAL THERAPY THIS AM.
[2024-07-12 10:35] VITALS: BP 157/85
[2024-07-12] MEDS ORDERED: Potassium Phosphate,Monobasic 500 MG Tablet PO SCH ×2 (16:00)
--- NOTE | 2024-07-12 17:30 | NUR ---
SHIFT SUMMARY PT DOING BETTER THIS AFTERNOON. A&OX4, UP TO BEDSIDE COMMODE WITH SBA. WORKED WITH PHYSICAL THERAPY, THEY RECOMMEND PT AT HOME. TOLERATING PO INTAKE WELL. ON ROOM AIR WITH SATS >90%, NO DYSPNEA AT REST. NO NEW COMPLAINTS OR CONCERNS FROM PATIENT. REPORT GIVEN TO MEDICAL FLOOR NURSE, PT MOVING TO ROOM 339.
--- NOTE | 2024-07-12 19:03 | NUR ---
SHIFT SUMMARY PATIENT ARRIVED TO FLOOR ABOUT 1800. SKIN INTACT. A/O X4. ON ROOM AIR, WAS ABLE TO TRANSFER [address] [facility] TO BED.
[2024-07-12 20:25] VITALS: BP 148/86
[2024-07-12] MEDS ORDERED: Insulin Regular 100 UNIT/ML 10ML Vial SC SCH (21:00)
[2024-07-13 02:33] VITALS: BP 154/78
--- NOTE | 2024-07-13 03:57 | NUR ---
PT A&O X4. VS WNL, PT ON RA, L/S WHEEZING, CBG 97 NO COVERAGE REQUIRED. PT DENIED PAIN. PT PLACED ON CPAP, BUT PT REMOVED AND DID NOT WISH TO PUT BACK ON. SLEPT WELL THIS SHIFT. UP TO BR WITH ASSIT TO VOID, PO INTAKE WNL.
[2024-07-13] MEDS ORDERED: Pantoprazole Sodium 20 MG Tab PO SCH (06:00)
[2024-07-13 06:09] LABS: BASOPHILS ABSOLUTE AUTO 0.09 K/mm3 (0.00-0.23); BASOPHILS PERCENT AUTO 1 % (0-2); EOSINOPHILS ABSOLUTE AUTO 0.22 K/mm3 (0.00-0.68); EOSINOPHILS PERCENT AUTO 1 % (0-6); Hemoglobin 11.3 g/dL (13.5-17.5); IMMATURE GRAN PERCENT AUTO 2 % (0-1); LYMPHOCYTES ABSOLUTE AUTO 1.27 K/mm3 (0.84-5.20); LYMPHOCYTES PERCENT AUTO 8 % (21-46); MONOCYTES ABSOLUTE AUTO 1.18 K/mm3 (0.16-1.47); MONOCYTES PERCENT AUTO 7 % (4-13); Mean Corpuscular HGB 29.4 pg (26.0-34.0); Mean Corpuscular HGB Conc 31.4 g/dL (31.5-36.5); Mean Corpuscular Volume 94 fL (80-100); Mean Platelet Volume 10.7 fL (9.1-12.4); NEUTROPHILS ABSOLUTE AUTO 13.64 K/mm3 (1.96-9.15); NEUTROPHILS PERCENT AUTO 81 % (41-73); NRBC ABSOLUTE 0.03 K/mm3 (0.00-0.02); NRBC Auto 0.2 /100 WBC (0.0-0.2); Platelet Count 130 K/mm3 (150-400); RDW Coefficient Variation 17.8 % (11.7-14.2); RDW Standard Deviation 61.8 fL (35.1-46.3); Red Blood Cell Count 3.85 M/mm3 (4.30-5.90)
[2024-07-13 06:56] LABS: Bun/Creatinine Ratio 34.1 (12.0-20.0); Calcium, Blood 8.5 mg/dL (8.5-10.1); Creatinine, Blood 0.62 mg/dL (0.60-1.20); Phosphorus, Blood 2.8 mg/dL (2.5-4.9); Potassium, Blood 3.3 mmol/L (3.5-5.5)
[2024-07-13] MEDS ORDERED: Potassium Chloride 20 MEQ TabCR PO ONE (08:00)
[2024-07-13 08:26] VITALS: BP 157/90
[2024-07-13] MEDS ORDERED: PredniSONE 20 MG Tab PO SCH (09:00)
[2024-07-13 17:50] VITALS: BP 133/91
[2024-07-13 20:02] VITALS: BP 129/73
--- NOTE | 2024-07-13 20:17 | NUR ---
SHIFT SUMMARY- PT ALERT AND ORIENTED. INDEPENDENT IN THE ROOM, NO S&S OF DISTRESS NOTED AT THE TIME OF BEDSIDE REPORT. PT IN BED TALKING TO STAFF AT THE TIME OF REPORT, CALL LIGHT IN REACH DENIES ANY NEEDS. PLAN IS FOR DC HOME TOMORROW.
[2024-07-14 04:01] VITALS: BP 168/78
--- NOTE | 2024-07-14 06:39 | NUR ---
ADMITTED FOR SEPTIC SHOCK AND IS A DNI. IS ALERT AND ABLE TO MAKE NEED KNOWN. ADLs HAVE BEEN IND. DENIES PAIN OR DISCOMFORT WHEN ASKED.
[2024-07-14 07:22] VITALS: BP 156/81
[2024-07-14] MEDS ORDERED: VISBIOME 112.51 EACH PO (12:08)
[2024-07-14] MEDS ORDERED: PRED20 PO (12:08)
[2024-07-14] MEDS ORDERED: AMOCLA875 PO (12:08)
--- NOTE | 2024-07-14 13:13 | NUR ---
DISCHARGE NOTE- PT WAS GIVEN VERBAL AND WRITTEN DISCHARGE INSTRUCTIONS AND ACKNOWLEDGED UNDERSTANDING OF THEM. PT HAD NO IV OR TELE TO DC AT THE TIME OF DISCHARGE. HE ATE HIS LUNCH AND WAS ESCORTED OUT VIA WC BY THE CREATIVE CONSULTANT HIS SPOUSE WAS PRESENT FOR THE DISCHARGE TEACHING.
== END 2024-07-14 13:13 | disposition home health service (06) | DRG 871 ==
LOC: ER 09:10 → MEDS 12:24 → ICUE 12:24 → MEDS 07-12 17:55
PROVIDERS: Student in an Organized Health Care Education/Training Program; ADMIT Internal Medicine
PROC: 5A0945A Assistance with Respiratory Ventilation, 24-96 Consecutive Hours, High Flow/Velocity Cannula (ICD-10-PCS; principal; 2024-07-09)
PROC: 4A033R1 Measurement of Arterial Saturation, Peripheral, Percutaneous Approach (ICD-10-PCS; 2024-07-09)
PROC: 3E033XZ Introduction of Vasopressor into Peripheral Vein, Percutaneous Approach (ICD-10-PCS; 2024-07-09)
PROC: 3E03329 Introduction of Other Anti-infective into Peripheral Vein, Percutaneous Approach (ICD-10-PCS; 2024-07-09)
DX: A40.3 Sepsis due to Streptococcus pneumoniae (principal); J13 Pneumonia due to Streptococcus pneumoniae; R65.21 Severe sepsis with septic shock; J96.21 Acute and chronic respiratory failure with hypoxia; C78.00 Secondary malignant neoplasm of unspecified lung; C78.7 Secondary malignant neoplasm of liver and intrahepatic bile duct; C18.9 Malignant neoplasm of colon, unspecified; C79.51 Secondary malignant neoplasm of bone; N17.9 Acute kidney failure, unspecified; I48.20 Chronic atrial fibrillation, unspecified; D84.821 Immunodeficiency due to drugs; I50.20 Unspecified systolic (congestive) heart failure; J44.9 Chronic obstructive pulmonary disease, unspecified; F32.A Depression, unspecified; G47.33 Obstructive sleep apnea (adult) (pediatric); Z96.653 Presence of artificial knee joint, bilateral; F17.290 Nicotine dependence, other tobacco product, uncomplicated; E66.01 Morbid (severe) obesity due to excess calories; R01.1 Cardiac murmur, unspecified; E11.40 Type 2 diabetes mellitus with diabetic neuropathy, unspecified; T45.1X5A Adverse effect of antineoplastic and immunosuppressive drugs, initial encounter; I11.0 Hypertensive heart disease with heart failure; R53.1 Weakness; D64.9 Anemia, unspecified; Z99.89 Dependence on other enabling machines and devices; Z91.198 Patient's noncompliance with other medical treatment and regimen for other reason; Z98.890 Other specified postprocedural states; Z51.11 Encounter for antineoplastic chemotherapy; Z79.84 Long term (current) use of oral hypoglycemic drugs; Z79.899 Other long term (current) drug therapy; Z68.32 Body mass index [BMI] 32.0-32.9, adult; Z79.51 Long term (current) use of inhaled steroids; Z28.21 Immunization not carried out because of patient refusal; J32.0 Chronic maxillary sinusitis
CPT/HCPCS: 0241U; 31720; 36415; 36600; 51702; 70470; 71045; 71260; 80047; 80048; 80053; 80202; 82803; 82947; 83036; 83605; 83735; 83880; 84100; 85014; 85025; 85379; 85610; 85730; 87040; 87070; 87186; 87205; 93005; 93010; 94644; 94664; 94762; 96365-59; 96366-59; 96368; 96375-59; 97110; 97116; 97161; 97165; 97530; 99285-25; A9270; C8929; J0360; J0456; J0692; J0696; J1642; J1650; J1720; J1815; J2470; J2543; J3010; J3370; J3480; J7030; J7050; J7060; J7120; J7512; Q9957; Q9967